=== PATIENT | female | born 1960 | race Caucasian/White ===

== ENCOUNTER 2017-03-09 10:08 | Emergency (ER) | payer MEDICARE ==
--- NOTE | 2017-03-09 12:00 | RAD ---
PA AND LATERAL OF THE CHEST: INDICATION: Cough for weeks. COMPARISON: Prior exam dated 08/04/16. FINDINGS: Lungs are clear. Cardiomediastinal silhouette is normal-appearing. No acute osseous abnormality is demonstrated. IMPRESSION: No acute cardiopulmonary abnormality. POS: [facility]
== END 2017-03-09 11:45 | disposition home or self-care (01) ==
LOC: ERS 10:08
DX: J20.9 Acute bronchitis, unspecified (principal); E11.9 Type 2 diabetes mellitus without complications; E78.2 Mixed hyperlipidemia; I10 Essential (primary) hypertension; F31.9 Bipolar disorder, unspecified; F20.9 Schizophrenia, unspecified; F41.9 Anxiety disorder, unspecified; Z79.82 Long term (current) use of aspirin; Z79.899 Other long term (current) drug therapy; Z79.4 Long term (current) use of insulin
CPT/HCPCS: 71020

== ENCOUNTER 2017-08-28 18:39 | Emergency (ER) | payer MEDICARE ==
--- NOTE | 2017-08-28 19:16 | RAD ---
CHEST ONE VIEW: History: Cough. Comparison: 03-09-17 FINDINGS: The lungs are clear. No pneumothorax or effusion. Cardiac silhouette and mediastinal contours are wit hin normal limits. IMPRESSION: No acute intrathoracic abnormality. POS: [facility]
== END 2017-08-28 19:30 | disposition home or self-care (01) ==
LOC: SCSER 18:39
DX: J20.9 Acute bronchitis, unspecified (principal); E11.9 Type 2 diabetes mellitus without complications; E78.5 Hyperlipidemia, unspecified; F31.9 Bipolar disorder, unspecified; F20.9 Schizophrenia, unspecified; F90.9 Attention-deficit hyperactivity disorder, unspecified type; F41.9 Anxiety disorder, unspecified; I10 Essential (primary) hypertension; K21.9 Gastro-esophageal reflux disease without esophagitis; Z79.4 Long term (current) use of insulin
CPT/HCPCS: 71045

== ENCOUNTER 2017-10-07 10:48 | Outpatient (CLI) | payer MEDICARE | END 2017-10-07 10:49 | disposition home or self-care (01) | LOC: BICMAMMO 10:48 | PROVIDERS: ATTEND Family Medicine | DX: Z12.31 Encounter for screening mammogram for malignant neoplasm of breast (principal); Z80.3 Family history of malignant neoplasm of breast | CPT/HCPCS: 77063; 77067 ==

== ENCOUNTER 2018-03-07 18:31 | Emergency (ER) | payer MEDICARE ==
--- NOTE | 2018-03-07 19:17 | RAD ---
PORTABLE CHEST: 03/07/18 PROVIDED CLINICAL HISTORY: Cough. FINDINGS: Comparison 08/28/17. The cardiac and mediastinal silhouette is unchanged in appearance. Lungs appear clear. No pleural flu id or pneumothorax apparent. IMPRESSION: No evidence for an acute cardiopulmonary process. POS: [facility]
== END 2018-03-07 20:10 | disposition home or self-care (01) ==
LOC: ERS 18:31
DX: J06.9 Acute upper respiratory infection, unspecified (principal); K21.9 Gastro-esophageal reflux disease without esophagitis; E11.9 Type 2 diabetes mellitus without complications; E78.5 Hyperlipidemia, unspecified; I10 Essential (primary) hypertension; Z79.899 Other long term (current) drug therapy; Z79.84 Long term (current) use of oral hypoglycemic drugs
CPT/HCPCS: 71045; 94640; J7620

== ENCOUNTER 2018-03-12 20:28 | Emergency (ER) | payer MEDICARE ==
[2018-03-12 21:22] LABS: Hemoglobin 13.5 g/dL (12.0-16.0); Mean Corpuscular HGB CONC 35.9 g/dL (32.0-36.0); Mean Platelet Volume 8.6 fL (7.4-10.4); Platelet Count 187 thou/uL (130-400); RBC Distribution Width 11.6 % (11.5-14.5); Red Blood Cell (RBC) Count 4.09 mill/uL (4.20-5.40); White Blood Cell (WBC) Count 6.1 thou/uL (4.8-10.8)
--- NOTE | 2018-03-12 21:27 | RAD ---
PORTABLE CHEST: HISTORY: Cough. COMPARISON: 03/07/2018 FINDINGS: Heart size and mediastinum are within normal limits. Lungs appear clear of any infiltrative process. IMPRESSION: No active intrathoracic disease. POS: [facility]
[2018-03-12] MEDS ORDERED: Dexamethasone 10 MG/ML VIAL ONE (21:30)
[2018-03-12 21:32] LABS: ALT (SGPT) 44 U/L (8-55); AST (SGOT) 32 U/L (5-34); Albumin 4.4 g/dL (3.5-5.0); Alkaline Phosphatase 171 U/L (40-150); Anion Gap 17 mmol/L (10-20); BUN (Urea Nitrogen) 9 mg/dL (9.8-20.1); Bilirubin, Total 0.2 mg/dL (0.2-1.2); Calc. Creatinine Clearance 0 mL/min (70-130); Calcium 9.5 mg/dL (7.8-10.44); Carbon Dioxide 26 mmol/L (22-29); Chloride 95 mmol/L (98-107); Estimated GFR-MDRD 81; Globulin 3.1 g/dL (2.4-3.5); Glucose 269 mg/dL (70-105); Potassium 3.7 mmol/L (3.5-5.1); Protein, Total 7.5 g/dL (6.0-8.3); Sodium 134 mmol/L (136-145)
[2018-03-12 21:41] LABS: Band 2 % (5-11); Lymphocytes 49 % (21-51); MDiff Complete? YES; Monocytes 5 % (0-10); Neutrophil 40 % (42-75); Reactive Lymphocytes 4 % (0-10)
--- NOTE | 2018-03-17 15:19 | EKG ---
Test Reason : Blood Pressure : / mmHG Vent. Rate : 086 BPM Atrial Rate : 086 BPM P-R Int : 126 ms QRS Dur : 086 ms QT Int : 352 ms P-R-T Axes : 060 026 074 degrees QTc Int : 421 ms Normal sinus rhythm Normal ECG Confirmed by SHON KUMAR M.D. ([id number]), multimedia editor NIRALI ROSE ([id number]) on 03/17/2018 3:18:56 PM Referred By: Confirmed By:SHON KUMAR M.D.
== END 2018-03-12 22:26 | disposition home or self-care (01) ==
LOC: ERS 20:28
DX: B34.9 Viral infection, unspecified (principal); K21.9 Gastro-esophageal reflux disease without esophagitis; E11.9 Type 2 diabetes mellitus without complications; E78.5 Hyperlipidemia, unspecified; I10 Essential (primary) hypertension; F90.9 Attention-deficit hyperactivity disorder, unspecified type; F41.9 Anxiety disorder, unspecified; F31.9 Bipolar disorder, unspecified; F20.9 Schizophrenia, unspecified; Z79.82 Long term (current) use of aspirin; Z79.4 Long term (current) use of insulin; Z79.899 Other long term (current) drug therapy
CPT/HCPCS: 36415; 71045; 80053; 85025; 87804; 93005; 94640; J1100; J7620

== ENCOUNTER 2018-04-12 20:01 | Emergency (ER) | payer MEDICARE ==
--- NOTE | 2018-04-12 20:49 | RAD ---
RIGHT FOOT THREE VIEWS: 04/12/18 COMPARISON: None. HISTORY: Right sided foot pain. FINDINGS: There is an obliquely oriented fracture at the base of the fifth metatarsal extending into the articu lation with the cuboid. There is minimal distraction with no significant displacement. There is enthe sophyte formation at the insertion of the Achilles tendon and origin of the plantar aponeurosis. IMPRESSION: Fracture at the base of the fifth metatarsal. POS: [facility]
== END 2018-04-12 20:48 | disposition home or self-care (01) ==
LOC: ERS 20:01
DX: S92.351A Displaced fracture of fifth metatarsal bone, right foot, initial encounter for closed fracture (principal); K21.9 Gastro-esophageal reflux disease without esophagitis; E78.1 Pure hyperglyceridemia; I10 Essential (primary) hypertension; F41.9 Anxiety disorder, unspecified; F31.9 Bipolar disorder, unspecified; F90.9 Attention-deficit hyperactivity disorder, unspecified type; F20.9 Schizophrenia, unspecified; Z79.4 Long term (current) use of insulin; X58.XXXA Exposure to other specified factors, initial encounter

== ENCOUNTER 2018-07-06 18:10 | Emergency (ER) | payer MEDICARE ==
[2018-07-06 18:43] LABS: #Eosinphils 0.1 thou/uL (0.0-0.7); #Lymphocytes 2.3 thou/uL (1.20-3.40); #Monocytes 0.7 thou/uL (0.11-0.59); #Neutrophils 4.1 thou/uL (1.40-6.50); %Basophils 0.6 % (0.0-1.0); %Eosinophils 0.9 % (0.0-10.0); %Lymphocytes 32.2 % (21.0-51.0); %Monocytes 9.9 % (0.0-10.0); %Neutrophils 56.4 % (42.0-75.0); Hemoglobin 12.6 g/dL (12.0-16.0); Mean Corpuscular HGB CONC 34.3 g/dL (32.0-36.0); Mean Corpuscular Volume 93.2 fL (78.0-98.0); Mean Platelet Volume 9.1 fL (7.4-10.4); Platelet Count 160 thou/uL (130-400); RBC Distribution Width 11.2 % (11.5-14.5); Red Blood Cell (RBC) Count 3.92 mill/uL (4.20-5.40); White Blood Cell (WBC) Count 7.3 thou/uL (4.8-10.8)
[2018-07-06 19:13] LABS: ALT (SGPT) 22 U/L (8-55); AST (SGOT) 15 U/L (5-34); Albumin 4.4 g/dL (3.5-5.0); Alkaline Phosphatase 129 U/L (40-150); Anion Gap 13 mmol/L (10-20); BUN (Urea Nitrogen) 9 mg/dL (9.8-20.1); Bilirubin, Total 0.6 mg/dL (0.2-1.2); CK (CPK) 87 U/L (29-168); Calc. Creatinine Clearance 0 mL/min (70-130); Calcium 9.6 mg/dL (7.8-10.44); Carbon Dioxide 31 mmol/L (22-29); Chloride 95 mmol/L (98-107); Estimated GFR-MDRD 72; Globulin 2.5 g/dL (2.4-3.5); Glucose 303 mg/dL (70-105); Lipase 16 U/L (8-78); Potassium 5.3 mmol/L (3.5-5.1); Protein, Total 6.9 g/dL (6.0-8.3); Sodium 134 mmol/L (136-145)
[2018-07-06 21:10] LABS: Anion Gap 10 mmol/L (10-20); BUN (Urea Nitrogen) 9 mg/dL (9.8-20.1); Calc. Creatinine Clearance 0 mL/min (70-130); Calcium 8.9 mg/dL (7.8-10.44); Carbon Dioxide 30 mmol/L (22-29); Chloride 98 mmol/L (98-107); Estimated GFR-MDRD 84; Glucose 234 mg/dL (70-105); Potassium 4.3 mmol/L (3.5-5.1); Sodium 134 mmol/L (136-145)
[2018-07-06 21:16] LABS: Troponin I Less than 0.010 ng/mL (< 0.028)
--- NOTE | 2018-07-06 21:26 | RAD ---
EXAM: Chest one view: HISTORY: Chest pain COMPARISON: 03/12/2018 FINDINGS: Heart size: Within normal limits. The lungs: Clear of acute process. No evidence for pneumonia, pleural effusion, acute edema, or pneumothorax, or other significant acute process. IMPRESSION: No significant acute intrathoracic disease. Stable from prior study.
== END 2018-07-06 21:40 | disposition home or self-care (01) ==
LOC: ERS 18:10
DX: R07.89 Other chest pain (principal); E86.0 Dehydration; K21.9 Gastro-esophageal reflux disease without esophagitis; E11.9 Type 2 diabetes mellitus without complications; I10 Essential (primary) hypertension; Z79.899 Other long term (current) drug therapy; Z79.84 Long term (current) use of oral hypoglycemic drugs
CPT/HCPCS: 36415; 71045; 80053; 82550; 83690; 84484; 85025; 93005; 96360; 96361

== ENCOUNTER 2018-08-05 17:21 | Emergency (ER) | payer MEDICARE ==
[~2018-08-05 17:21] MED LIST: Iopamidol 370 76% 100 ML VIAL ONE
[2018-08-05] MEDS ORDERED: Ondansetron PF 4 MG/2 ML Vial ONE (17:57)
[2018-08-05] MEDS ORDERED: Metoclopramide HCl 10 MG/2 ML VIAL ONE (17:57)
[2018-08-05 18:18] LABS: Hemoglobin 12.7 g/dL (12.0-16.0); Mean Corpuscular HGB CONC 35.3 g/dL (32.0-36.0); Mean Corpuscular Hemoglobin 31.7 pg (27.0-31.0); Mean Corpuscular Volume 89.8 fL (78.0-98.0); Mean Platelet Volume 10.5 fL (7.4-10.4); Platelet Count 125 thou/uL (130-400); RBC Distribution Width 11.3 % (11.5-14.5); Red Blood Cell (RBC) Count 3.99 mill/uL (4.20-5.40); White Blood Cell (WBC) Count 4.7 thou/uL (4.8-10.8)
[2018-08-05 18:29] LABS: Eosinophils 1 % (0-10); Lymphocytes 48 % (21-51); MDiff Complete? YES; Monocytes 6 % (0-10); Neutrophil 42 % (42-75); Platelet Morphology Comment Appears Decreased; RBC Morphology Normal; Reactive Lymphocytes 2 % (0-10)
[2018-08-05 18:30] LABS: Bilirubin Negative (Negative); Blood, Urine Negative (Negative); Clarity Clear (Clear); Glucose, Urine (Dipstick) 500 mg/dL (Negative); Leukocyte Negative (Negative); Nitrite Negative (Negative); Protein, Urine (Dipstick) Negative (Neg-Trace); Urobilinogen 0.2 mg/dL (0.2-1.0); pH, Urine 5.5 (5.0-9.0)
[2018-08-05 18:30] LABS: ALT (SGPT) 40 U/L (8-55); AST (SGOT) 25 U/L (5-34); Albumin 4.4 g/dL (3.5-5.0); Alkaline Phosphatase 124 U/L (40-150); Anion Gap 13 mmol/L (10-20); BUN (Urea Nitrogen) 8 mg/dL (9.8-20.1); Bilirubin, Total 0.3 mg/dL (0.2-1.2); Calc. Creatinine Clearance 0 mL/min (70-130); Calcium 9.6 mg/dL (7.8-10.44); Carbon Dioxide 30 mmol/L (22-29); Chloride 93 mmol/L (98-107); Estimated GFR-MDRD 74; Globulin 2.7 g/dL (2.4-3.5); Glucose 282 mg/dL (70-105); Protein, Total 7.1 g/dL (6.0-8.3); Sodium 132 mmol/L (136-145)
--- NOTE | 2018-08-05 19:12 | CT ---
CT ABDOMEN AND PELVIS WITH IV CONTRAST 08/05/2018 CLINICAL INFORMATION: Left lower quadrant abdominal pain and prior history of diverticulitis. Low back pain. COMPARISON: 05/28/2015 Technique: Multiple contiguous axial CT images are obtained through the abdomen and pelvis with IV contrast. Cor onal reformatted images are provided. FINDINGS: Lower Chest: within normal limits. Vessels: Vascular calcifications are seen in the abdominal aorta and involving the iliac arteries. Abdomen: Portal vein:Patent Gallbladder: Postcholecystectomy changes are noted. Liver: The liver is enlarged in craniocaudal dimensions measuring 24 cm. This is similar to prior exa m. Pancreas: within normal limits. Spleen: within normal limits. Adrenals: within normal limits. Kidneys: within normal limits. Bowel: There is colonic diverticulosis without CT evidence of diverticulitis. Loops of small bowel ar e normal in caliber. Appendix: The appendix is visualized and normal in caliber. Peritoneum: No ascites or free air; no fluid collection. Mesentery and Retroperitoneum: No enlarged mesenteric or retroperitoneal lymph nodes. Abdominal Wall: Minimal stranding is seen within the anterior adipose layer of the lower abdominal wa ll at the level of the umbilicus. This is nonspecific. Pelvis: Reproductive Organs: Again noted is evidence of prior hysterectomy. Pelvis within normal limits. Bladder: within normal limits. Bones: Mild degenerative changes are seen in the spine. IMPRESSION: 1. No acute findings are seen in the abdomen or pelvis. 2. Stable enlargement of the liver in craniocaudal dimensions. 3. Postoperative changes related to cholecystectomy and hysterectomy. 4. Colonic diverticulosis.
== END 2018-08-05 20:48 | disposition home or self-care (01) ==
LOC: SCSER 17:21
DX: K58.9 Irritable bowel syndrome, unspecified (principal); K21.9 Gastro-esophageal reflux disease without esophagitis; E11.9 Type 2 diabetes mellitus without complications; E78.2 Mixed hyperlipidemia; I10 Essential (primary) hypertension; F90.9 Attention-deficit hyperactivity disorder, unspecified type; F31.9 Bipolar disorder, unspecified; F41.9 Anxiety disorder, unspecified; F20.9 Schizophrenia, unspecified; Z79.4 Long term (current) use of insulin
CPT/HCPCS: 74177; 80053; 81003; 83690; 85025; 87086; 96365; 96372; 96375; J0500; J2405; J2765; Q9967

== ENCOUNTER 2018-10-01 15:01 | Emergency (ER) | payer MEDICARE ==
--- NOTE | 2018-10-01 15:36 | RAD ---
XR Knee Lt 4 View STANDARD: 10/01/2018 3:14 PM CLINICAL INDICATION: Left knee pain COMPARISON: None. FINDINGS: Bones: Small marginal osteophytes are seen involving the patella Joints: There is mild joint capsular distention. Soft Tissue: Within normal limits. IMPRESSION: Mild osteoarthrosis of the left knee. No acute fracture or subluxation. Mild joint capsular distentio n..
== END 2018-10-01 15:47 | disposition home or self-care (01) ==
LOC: ERS 15:01
DX: S83.92XA Sprain of unspecified site of left knee, initial encounter (principal); E11.9 Type 2 diabetes mellitus without complications; K21.9 Gastro-esophageal reflux disease without esophagitis; E78.5 Hyperlipidemia, unspecified; I10 Essential (primary) hypertension; F31.9 Bipolar disorder, unspecified; Z79.899 Other long term (current) drug therapy; Z79.4 Long term (current) use of insulin; W18.30XA Fall on same level, unspecified, initial encounter

== ENCOUNTER 2018-10-06 15:00 | Outpatient (CLI) | payer MEDICARE ==
--- NOTE | 2018-10-06 16:40 | MRI ---
LEFT KNEE MRI WITHOUT IV CONTRAST: 10/06/18 HISTORY: Acute left knee pain. Very irregular appearance of the patellar cartilage involving medial and lateral patellar facet regio ns, evidence for prominent chondromalacia patella as well as some minimal generalized cartilage loss of the medial compartment and less so lateral compartment. Minimal interosseous cystic changes noted involving the intercondylar eminence of the proximal tibia probably related to interosseous ganglion cyst. Irregular posterior root tear of the medial meniscus as well as slightly complicated tear with horizontal component involving the body of the medial meniscus. Slight free edge irregularity of the lateral meniscus body. Anterior and posterior cruciate ligaments and collateral ligament complexes an d quadriceps and patellar tendons appear intact. No significant acute osteochondral defect or abnorma l marrow signal. IMPRESSION: Irregular posterior root tear medial meniscus as well as a minimally complex tear of the body of the medial meniscus including a horizontal component. Irregular cartilage loss with evidence for fairly m arked chondromalacia patella. Intrasubstance degenerative signal and mild free edge irregularity of t he lateral meniscus. Interosseous cystic ganglion involving the intercondylar eminence of the proxima l tibia. POS: OFF
== END 2018-10-06 15:01 | disposition home or self-care (01) ==
LOC: BICMRI 15:00
PROVIDERS: ATTEND Orthopaedic Surgery
DX: M25.562 Pain in left knee (principal); S83.232A Complex tear of medial meniscus, current injury, left knee, initial encounter; M22.42 Chondromalacia patellae, left knee; M67.462 Ganglion, left knee

== ENCOUNTER 2018-10-09 09:18 | Outpatient (CLI) | payer MEDICARE ==
--- NOTE | 2018-10-09 10:25 | MMO ---
Bilateral MAMMO Bilat Screen [facility]. CLINICAL HISTORY: Patient is 58 years old and is seen for screening. The patient has the following family history of breast cancer: 2 paternal aunts. The patient has no personal history of cancer. The patient has a history of left Ultrasound Guided Core Biopsy in January,. VIEWS: The views performed were: bilateral craniocaudal with tomosynthesis and bilateral mediolateral oblique with tomosynthesis. FILMS COMPARED: The present examination has been compared to prior imaging studies performed at [facility] on 07/16/2014, 07/23/2015, 08/03/2016 and 10/07/2017. MAMMOGRAM FINDINGS: There are scattered fibroglandular densities. There are stable benign appearing calcifications seen in both breasts. There are benign scattered densities in both breasts. There are no suspicious masses, suspicious calcifications, or new areas of architectural distortion. IMPRESSION: THERE IS NO MAMMOGRAPHIC EVIDENCE OF MALIGNANCY. A ROUTINE FOLLOW-UP MAMMOGRAM IN 1 YEAR IS RECOMMENDED. THE RESULTS OF THIS EXAM WERE SENT TO THE PATIENT. ACR BI-RADS Category 2 - Benign finding MAMMOGRAPHY NOTE: 1. A negative mammogram report should not delay a biopsy if a dominant of clinically suspicious mass is present. 2. Approximately 10% to 15% of breast cancers are not detected by mammography. 3. Adenosis and dense breasts may obscure an underlying neoplasm. Reported by: BANDAR MCCLAIN MD Electonically Signed: [id number]
== END 2018-10-09 09:19 | disposition home or self-care (01) ==
LOC: BICMAMMO 09:18
PROVIDERS: ATTEND Family Medicine
DX: Z12.31 Encounter for screening mammogram for malignant neoplasm of breast (principal); Z80.3 Family history of malignant neoplasm of breast
CPT/HCPCS: 77063; 77067

== ENCOUNTER 2018-10-19 08:31 | Day surgery (SDC) | payer MEDICARE ==
[2018-10-18 11:08] VITALS: BMI 35.4
[2018-10-19] MEDS ORDERED: ceFAZolin Sodium (SDC) 2 GM/100 ML BAG ONE (09:23)
[2018-10-19 09:50] LABS: #Basophils 0.1 thou/uL (0.0-0.2); #Eosinphils 0.1 thou/uL (0.0-0.7); #Monocytes 0.4 thou/uL (0.11-0.59); #Neutrophils 1.6 thou/uL (1.40-6.50); %Basophils 1.5 % (0.0-1.0); %Eosinophils 2.1 % (0.0-10.0); %Lymphocytes 46.7 % (21.0-51.0); %Monocytes 10.4 % (0.0-10.0); %Neutrophils 39.3 % (42.0-75.0); Hemoglobin 13.1 g/dL (12.0-16.0); Mean Corpuscular HGB CONC 34.9 g/dL (32.0-36.0); Mean Corpuscular Hemoglobin 31.8 pg (27.0-31.0); Mean Platelet Volume 8.9 fL (7.4-10.4); Platelet Count 161 thou/uL (130-400); RBC Distribution Width 11.4 % (11.5-14.5); Red Blood Cell (RBC) Count 4.14 mill/uL (4.20-5.40); White Blood Cell (WBC) Count 4.2 thou/uL (4.8-10.8)
[2018-10-19 09:58] LABS: Prothrombin Time 12.8 SEC (12.0-14.7)
[2018-10-19 10:02] LABS: Anion Gap 12 mmol/L (10-20); BUN (Urea Nitrogen) 7 mg/dL (9.8-20.1); Calc. Creatinine Clearance 140 mL/min (70-130); Calcium 9.7 mg/dL (7.8-10.44); Carbon Dioxide 31 mmol/L (22-29); Chloride 98 mmol/L (98-107); Estimated GFR-MDRD 78; Glucose 254 mg/dL (70-105); Potassium 4.6 mmol/L (3.5-5.1); Sodium 136 mmol/L (136-145)
[2018-10-19] MEDS ORDERED: Lidocaine 1% (PF) 30 ML VIAL ONE (10:22)
[2018-10-19] MEDS ORDERED: Bupivacaine/Epinephrine 0.25% 30 ML VIAL ONE (10:22)
[2018-10-19] MEDS ORDERED: Fentanyl 100 MCG/2 ML VIAL ONE ×2 (10:34→12:50)
[2018-10-19] MEDS ORDERED: Promethazine HCl 25 MG/ML VIAL ONE (11:48)
[2018-10-19] MEDS ORDERED: HYDROcodone/Acetaminophen 5/325 mg Tablet ONE (13:58)
--- NOTE | 2018-10-19 14:51 | OP ---
DATE OF PROCEDURE: 10/19/2018 PREOPERATIVE DIAGNOSIS: Left knee medial meniscus tear. POSTOPERATIVE DIAGNOSES: 1. Left knee anterior horn frayed edge. 2. Posterior horn tear of medial meniscus near root. 3. Grade 2 to 3 changes of trochlea and grade 1 to 2 changes of patella. 4. Grade 1 to 2 changes, medial compartment. PROCEDURE PERFORMED: Medial meniscectomy. BUS DRIVER SUPERVISOR: None. ANESTHESIA: The patient received 30 mL of Marcaine preprocedure and 30 mL of lidocaine after the procedure. TOURNIQUET TIME: 26 minutes. ANTIBIOTICS: Ancef. COMPLICATIONS: None. HISTORY OF PRESENT ILLNESS: Ms. Anthony is a 58-year-old female presenting with knee pain. The knee pain has been present for about 3 weeks. The patient's pain is severe. The patient's MRI showed severe meniscal tear of chondromalacia patella , cartilage thinning of medial and lateral joint spaces. I discussed with the patient the risks and benefits of debridement of the medial meniscus tear to include pain, scar, bleeding, infection, risk of arthritis, need for further surgery, damage to vital structures, loss of life or limb, and blood clot. She understood these risks and benefits and elected to proceed. DESCRIPTION OF PROCEDURE: Time-out was performed designating the patient's left lower extremity as the operative site based on site, consents, and marking. After time-out, the patient's right lower extremity was prepped and draped in sterile fashion. Tourniquet was brought up and left for a total of 26 minutes. After we injected with Marcaine in the joint, we then placed the anterolateral portal, visualized fat pad, placed our anterior medial portal with a spinal needle. We debrided the fat pad and evaluated the ACL and PCL, which were intact. Patellofemoral joint with grade 2 to 3 changes of the trochlea and 1 to 2 on the patella. We probed gutters and saw no loose bodies laterally. There were no meniscal tears. No significant degenerative arthritic changes there. There was some grade 1 to 2 changes on the medial compartment. The meniscus actually looked good. The majority of its course was little frayed on the anterior edge near its insertion on the horn, which was slightly debrided. There was a the tear in the posterior horn root, but the meniscus itself was otherwise stable. I debrided back to stable remnant and cleaned up the edge of the posterior horn medial meniscus tear near its root. I then washed and completed my diagnostic scope and debriding some of the patellofemoral articular surface fibrillations, but not on the bone. We washed and closed with 3-0 nylon. The patient will be weightbearing as tolerated. The patient will be discharged home with hydrocodone 5/325. She will follow up with me in clinic in about 2 weeks. Job ID: [id number] [facility]
== END 2018-10-19 14:30 | disposition home or self-care (01) ==
LOC: SDC 08:31
PROVIDERS: ATTEND Orthopaedic Surgery
PROC: 0SBD4ZZ Excision of Left Knee Joint, Percutaneous Endoscopic Approach (ICD-10-PCS; principal; 2018-10-19)
DX: S83.232A Complex tear of medial meniscus, current injury, left knee, initial encounter (principal); M22.42 Chondromalacia patellae, left knee; G47.33 Obstructive sleep apnea (adult) (pediatric); I10 Essential (primary) hypertension; E78.5 Hyperlipidemia, unspecified; E10.9 Type 1 diabetes mellitus without complications; F41.9 Anxiety disorder, unspecified; E78.00 Pure hypercholesterolemia, unspecified; K21.9 Gastro-esophageal reflux disease without esophagitis; K58.9 Irritable bowel syndrome, unspecified; Z79.82 Long term (current) use of aspirin; Z79.84 Long term (current) use of oral hypoglycemic drugs; Z79.899 Other long term (current) drug therapy; Z88.8 Allergy status to other drugs, medicaments and biological substances; Z91.040 Latex allergy status; Z91.048 Other nonmedicinal substance allergy status; Y93.01 Activity, walking, marching and hiking
CPT/HCPCS: 80048; 85025; 85610; 93005; 93010; J0690; J2001; J2550; J3010

== ENCOUNTER 2018-11-03 11:32 | Emergency (ER) | payer MEDICARE ==
[2018-11-03] MEDS ORDERED: Lidocaine Viscous Sol 2% 15 ml UD Cup ONE (12:51)
[2018-11-03] MEDS ORDERED: Mag-Al 1200 mg/1200 mg/30 ML UDCUP ONE (12:51)
--- NOTE | 2018-11-03 13:17 | RAD ---
Chest 2 views HISTORY: Chest pain. Cough. COMPARISON: 03/09/2017. FINDINGS: The cardiac silhouette and pulmonary vasculature are unremarkable. Mediastinum is midline. No confluent airspace consolidation, pneumothorax, or pleural fluid. IMPRESSION: No active cardiopulmonary abnormalities are demonstrated.
[2018-11-03 13:30] LABS: #Eosinphils 0.1 thou/uL (0.0-0.7); #Lymphocytes 2.4 thou/uL (1.20-3.40); #Monocytes 0.6 thou/uL (0.11-0.59); #Neutrophils 2.6 thou/uL (1.40-6.50); %Basophils 0.7 % (0.0-1.0); %Eosinophils 1.9 % (0.0-10.0); %Lymphocytes 40.9 % (21.0-51.0); %Neutrophils 45.6 % (42.0-75.0); Hemoglobin 13.9 g/dL (12.0-16.0); Mean Corpuscular HGB CONC 35.2 g/dL (32.0-36.0); Mean Corpuscular Hemoglobin 32.6 pg (27.0-31.0); Mean Corpuscular Volume 92.6 fL (78.0-98.0); Mean Platelet Volume 8.1 fL (7.4-10.4); Platelet Count 187 thou/uL (130-400); RBC Distribution Width 11.4 % (11.5-14.5); Red Blood Cell (RBC) Count 4.26 mill/uL (4.20-5.40); White Blood Cell (WBC) Count 5.8 thou/uL (4.8-10.8)
[2018-11-03 14:03] LABS: ALT (SGPT) 34 U/L (8-55); AST (SGOT) 25 U/L (5-34); Albumin 4.6 g/dL (3.5-5.0); Alkaline Phosphatase 116 U/L (40-150); Anion Gap 13 mmol/L (10-20); BUN (Urea Nitrogen) 9 mg/dL (9.8-20.1); Bilirubin, Total 0.4 mg/dL (0.2-1.2); Calc. Creatinine Clearance 0 mL/min (70-130); Calcium 9.7 mg/dL (7.8-10.44); Carbon Dioxide 29 mmol/L (22-29); Chloride 96 mmol/L (98-107); Estimated GFR-MDRD 81; Globulin 2.7 g/dL (2.4-3.5); Glucose 121 mg/dL (70-105); Potassium 3.7 mmol/L (3.5-5.1); Protein, Total 7.3 g/dL (6.0-8.3); Sodium 134 mmol/L (136-145)
== END 2018-11-03 14:25 | disposition home or self-care (01) ==
LOC: ERS 11:32
DX: B34.9 Viral infection, unspecified (principal); K21.9 Gastro-esophageal reflux disease without esophagitis; E11.9 Type 2 diabetes mellitus without complications; I10 Essential (primary) hypertension; E78.2 Mixed hyperlipidemia; E78.5 Hyperlipidemia, unspecified; F90.9 Attention-deficit hyperactivity disorder, unspecified type; F31.9 Bipolar disorder, unspecified; F20.9 Schizophrenia, unspecified; F41.9 Anxiety disorder, unspecified; Z79.4 Long term (current) use of insulin; Z79.82 Long term (current) use of aspirin; Z79.899 Other long term (current) drug therapy
CPT/HCPCS: 36415; 71046; 80053; 84484; 85025; 87081; 87430; 93005

== ENCOUNTER 2018-11-18 11:33 | Observation (INO) | payer MEDICARE ==
--- NOTE | 2018-11-18 12:08 | RAD ---
CHEST 2 VIEWS: Date: 11/18/18 COMPARISON: 11/11/18. HISTORY: Productive cough and congestion. FINDINGS: Lungs are clear. Heart and mediastinal contours unremarkable. Multilevel degenerative change noted wi thin the thoracic spine. IMPRESSION: No acute findings. POS: OFF
[2018-11-18 12:45] LABS: #Basophils 0.1 thou/uL (0.0-0.2); #Eosinphils 0.1 thou/uL (0.0-0.7); #Lymphocytes 2.4 thou/uL (1.20-3.40); #Monocytes 0.5 thou/uL (0.11-0.59); #Neutrophils 2.4 thou/uL (1.40-6.50); %Basophils 1.1 % (0.0-1.0); %Eosinophils 1.2 % (0.0-10.0); %Lymphocytes 44.6 % (21.0-51.0); %Monocytes 8.4 % (0.0-10.0); %Neutrophils 44.7 % (42.0-75.0); Hemoglobin 13.6 g/dL (12.0-16.0); Mean Corpuscular HGB CONC 34.3 g/dL (32.0-36.0); Mean Corpuscular Hemoglobin 32.4 pg (27.0-31.0); Mean Corpuscular Volume 94.5 fL (78.0-98.0); Mean Platelet Volume 9.5 fL (7.4-10.4); Platelet Count 159 thou/uL (130-400); RBC Distribution Width 11.5 % (11.5-14.5); Red Blood Cell (RBC) Count 4.19 mill/uL (4.20-5.40); White Blood Cell (WBC) Count 5.4 thou/uL (4.8-10.8)
[2018-11-18] MEDS ORDERED: ISOVUE-370 76%-LOCM 1 ML ONE (12:57)
[2018-11-18 13:06] LABS: ALT (SGPT) 38 U/L (8-55); AST (SGOT) 26 U/L (5-34); Albumin 4.3 g/dL (3.5-5.0); Alkaline Phosphatase 135 U/L (40-150); Anion Gap 12 mmol/L (10-20); BUN (Urea Nitrogen) 9 mg/dL (9.8-20.1); Bilirubin, Total 0.4 mg/dL (0.2-1.2); Calc. Creatinine Clearance 0 mL/min (70-130); Calcium 9.6 mg/dL (7.8-10.44); Carbon Dioxide 28 mmol/L (22-29); Chloride 96 mmol/L (98-107); Estimated GFR-MDRD 67; Globulin 2.5 g/dL (2.4-3.5); Glucose 376 mg/dL (70-105); Potassium 3.9 mmol/L (3.5-5.1); Protein, Total 6.8 g/dL (6.0-8.3); Sodium 132 mmol/L (136-145)
[2018-11-18 14:30] LABS: CK (CPK) 52 U/L (29-168); Lipase 53 U/L (8-78)
--- NOTE | 2018-11-18 14:44 | CT ---
EXAM: Brain CTWithout contrast: HISTORY: Headache COMPARISON: None FINDINGS: Minimal mucus in the dependent portion of the right maxillary sinus. No focal mass or midline shift. No intra or extra-axial hemorrhage. Sinuses and mastoids are clear of acute process. IMPRESSION: No mass or bleed or other significant acute intracranial process.
--- NOTE | 2018-11-18 14:50 | CT ---
EXAM: CT angiogram of the chest including 3-D rendering: HISTORY: Cough, prior surgical history COMPARISON: None FINDINGS: There is adequate opacification of the pulmonary arteries. No evidence for aortic aneurysm or dissection. No convincing CT evidence for acute pulmonary embolism. No significant acute pulmonary parenchymal process. No evidence for mediastinal mass or adenopathy. No evidence for pleural or pericardial effusion. The visualized upper abdomen is unremarkable. IMPRESSION: No convincing CT evidence for acute pulmonary embolism.
[2018-11-18] MEDS ORDERED: Aspirin Chewable 81 MG TAB ONE (16:43)
[2018-11-18 16:47] LABS: Troponin I Less than 0.010 ng/mL (< 0.028)
[2018-11-18] MEDS ORDERED: Ondansetron PF 4 MG/2 ML Vial IVP PRN ×2 (17:55→19:15)
[2018-11-18] MEDS ORDERED: Acetaminophen 325 MG TAB PO PRN (17:55)
[2018-11-18] MEDS ORDERED: Ondansetron ODT 4 MG TAB SL PRN (17:55)
[2018-11-18 18:07] VITALS: BMI 36.2
[2018-11-18] MEDS ORDERED: busPIRone HCl 5 MG TAB PO PRN (18:59)
[2018-11-18] MEDS ORDERED: Guaifenesin DM 100-10/5 ML UDCUP PO PRN (19:15)
[2018-11-18] MEDS ORDERED: Dextrose 5% in Water 1,000 ML IV PRN (19:18)
[2018-11-18] MEDS ORDERED: Dextrose 50% Abboject 50 ML SYRINGE SLOW IVP PRN (19:18)
[2018-11-18] MEDS ORDERED: HumaLOG 300 UNITS/3 ML VIAL SC PRN (19:18)
[2018-11-18] MEDS ORDERED: Albuterol Sulfate 2.5 mg/3 ml Neb NEB PRN (19:23)
[2018-11-18 19:28] LABS: Troponin I Less than 0.010 ng/mL (< 0.028)
[2018-11-18] MEDS ORDERED: HYDROcodone/Acetaminophen 7.5/325 mg Tablet PO PRN (19:53)
[2018-11-18] MEDS: Insulin Glargine 40 UNITS in Pre-Filled Syringe 1 EACH SC SCH (20:52)
[2018-11-18] MEDS: HumaLOG 300 UNITS/3 ML VIAL SC PRN (20:54)
[2018-11-18] MEDS: methylPREDNISolone Sod Succ 40 MG VIAL IVP SCH (20:55)
[2018-11-18] MEDS: Amoxicillin/Potassium Clav 875 MG TAB PO SCH (20:59)
[2018-11-18] MEDS: Atorvastatin Calcium 20 MG TAB PO SCH (21:00)
[2018-11-18] MEDS: carBAMazepine 200 MG TAB PO SCH (21:00)
[2018-11-18] MEDS ORDERED: Non-Formulary Item 1 EACH (Levemir Flexpen [Levemir Flexpen] 40 UNIT) SC SCH (21:00)
[2018-11-18] MEDS: traZODone HCl 50 MG TAB PO SCH (21:01)
[2018-11-19] MEDS: Albuterol Sulfate 2.5 mg/3 ml Neb NEB SCH ×4 (00:12→19:52)
[2018-11-19 04:42] LABS: Cardiac Risk 3.7 (Less than 4.5); Magnesium 1.9 mg/dL (1.6-2.6)
[2018-11-19] MEDS: HumaLOG 300 UNITS/3 ML VIAL SC PRN (05:52)
[2018-11-19] MEDS ORDERED: Regadenoson 0.4 MG/5 ML SYRINGE ONE (07:20)
[2018-11-19] MEDS ORDERED: carBAMazepine 200 MG TAB PO SCH (09:00)
[2018-11-19] MEDS: Insulin Glargine 40 UNITS in Pre-Filled Syringe 1 EACH SC SCH ×2 (11:59→20:33)
[2018-11-19] MEDS: methylPREDNISolone Sod Succ 40 MG VIAL IVP SCH ×2 (12:00→20:38)
[2018-11-19] MEDS: Fish Oil 1,000 MG CAP PO SCH (12:00)
[2018-11-19] MEDS: Aspirin Chewable 81 MG TAB PO SCH (12:01)
[2018-11-19] MEDS: Calcium Carbonate + Vit D 1 TAB PO SCH (12:02)
[2018-11-19] MEDS: Hydrochlorothiazide 25 MG TAB PO SCH (12:02)
[2018-11-19] MEDS: carBAMazepine 200 MG TAB PO SCH ×2 (12:02→20:37)
[2018-11-19] MEDS: Multivit, Therapeutic 1 TAB PO SCH (12:02)
[2018-11-19] MEDS: Lisinopril 20 MG TAB PO SCH (12:03)
[2018-11-19] MEDS: Amoxicillin/Potassium Clav 875 MG TAB PO SCH ×2 (12:03→20:37)
--- NOTE | 2018-11-19 12:28 | HP ---
REASON FOR ADMISSION: Chest pain. HISTORY OF PRESENT ILLNESS: This is a 58-year-old female patient who presented to the emergency room complaining of chest pain that occurred yesterday. While she was driving with her , she developed a chest pain localized in the left parasternal area radiating to her arm in the form of tingling and numbness. This discomfort lasted for approximately 10 hours, subsided spontaneously. After returning home and lying in bed she felt something is strangling her and since she has a strong family history of coronary artery disease, she decided to come to the emergency room. In the ER, she was found to be in bigemin. The patient is currently on telemetry. When I went to see her, she was sitting in bed. She appeared to be comfortable. She was eating dinner with her . The patient has been struggling with respiratory infection for the past couple of weeks. It all started on November 06 when she visited the ER and was diagnosed with bronchitis. Then went to her primary care physician. She was started on azithromycin, prednisone, and promethazine. On the , she went back to her primary care physician complaining of persistence of her symptoms that consisted of cough productive of yellow and green sputum, also shortness of breath. She was given an additional dose of Rocephin. Then she went to the ER on the . She was diagnosed with pneumonia. She did receive courses of Levaquin, azithromycin and was on prednisone. Her last dose of prednisone was 5 days ago. Her last dose of antibiotic was 2 days ago. Today, the patient stills feels bad. She complains of stiffness in her neck and feels nauseous. She is coughing brownish phlegm. She feels that her sinuses are full. Whenever she blows her nose, she produces yellow discharge. She complains of her ears hurting. I reviewed her medical records and approximately 3 years ago she was admitted with chest pain, did undergo nuclear stress test that was negative. She said that she had more than 2 stress test in her lifetime. Also, she had a cardiac cath done approximately 14 years ago. All these testes were found to be negative. The patient also notes that last year she had multiple episodes of bronchitis. That is why she was prescribed a nebulizer machine which she has been using recently. She claims that her bronchitis is difficult to get rid of. PAST MEDICAL HISTORY: 1. Diabetes type 2. 2. High blood pressure. 3. High cholesterol. 4. GERD. 5. Diverticulitis. 6. Anxiety. 7. Bipolar disorder. 8. Depression. 9. Schizophrenia. 10. ADHD. PAST SURGICAL HISTORY: 1. x4. 2. Hernia repair. 3. Cholecystectomy. 4. Hysterectomy. 5. Left oophorectomy. 6. Status post recent left knee arthroscopy. ALLERGIES: RIFAMPIN, WHICH GIVES HER DIFFICULTY WITH BREATHING. SOCIAL HISTORY: She does not smoke. She drinks alcohol seldom. FAMILY HISTORY: Positive for heart disease, mainly on her mother's side, her uncles, her aunts. REVIEW OF SYSTEMS: All systems reviewed except for the above-mentioned chest pain found to be negative. PHYSICAL EXAMINATION: GENERAL: She is awake, alert, oriented. Does not appear in distress. VITAL SIGNS: Her blood pressure is 142/64, her heart rate is 96, temperature is 98.1, saturating 97% on room air. HEENT: Head is atraumatic, normocephalic. Pupils equal and reactive. Extraocular movements are intact. Nonicteric sclerae, with injected conjunctivae. Oral mucosa normal. Nasal mucosa normal. NECK: Supple. No adenopathy, no murmur. Thyroid is not palpable. Trachea is midline. No supraclavicular lymphadenopathy. CARDIOVASCULAR: S1, S2, regular. No murmur, no gallops. No frictional rubs, nondisplaced PMI. LUNGS: Clear to auscultation except whenever she coughs there is an end-expiratory wheezing bilaterally. ABDOMEN: Bowel sounds are positive, nontender abdomen, no hepatosplenomegaly. EXTREMITIES: No lower extremity edema. No cyanosis. NEUROLOGIC: Cranial nerves 2 through 12 within normal limits. Normal motor function. Normal sensory function and reflexes. LABORATORY DATA: Blood work shows hemoglobin of 13.6, platelets of 159, WBC 5.4. Sodium 132, potassium 3.9, BUN 9, creatinine 0.87. INR 1. EKG per my read shows bigeminy. Compared to a previous printed reports, this seems to be something new from a report of an EKG done in 2017. CT of the chest shows no evidence of acute PE. CT of head shows no mass or bleed. Minimal mucus in the dependent portion of the right maxillary sinus. ASSESSMENT AND PLAN: This is a 58-year-old female patient who is presenting with multiple symptoms mainly persistent cough and shortness of breath most likely secondary to a lingering viral infection. She did receive multiple doses of antibiotics and prednisone. Whenever she tapers off her prednisone, it seems that her symptoms get worse. Also, patient did have a chest pain while she was driving yesterday. It lasted 10 hours, but her cardiac enzymes are negative. She does have bigeminy 1. Cardiac. The patient will be admitted to telemetry. We will cycle her cardiac enzymes and we will schedule her for an echocardiogram and a Lexiscan in the morning. Continue aspirin, continue statins. We will check a magnesium level as well. 2. Pulmonary: The patient might be struggling with a viral bronchitis. She does have some mucus in her sinus. I would start her on some Augmentin and continue with IV Solu-Medrol and she will be on neb treatments as well. Because of her diabetes, we will hold her metformin since she did refuse contrast. She will be on insulin sliding scale and a long-acting insulin. 3. For her gastroesophageal reflux disease, she will be on Protonix. 4. For deep venous thrombolysis prophylaxis, she will be on SCDS. 5. For her history of bipolar and ADHD, she will be on her Tegretol. Job ID: [id number]
--- NOTE | 2018-11-19 13:02 | NM ---
Exam: Nuclear medicine cardiac stress only study with ejection fraction and wall motion HISTORY: Chest pain Lexiscan study is performed Patient was injected with 28.5 mCi technetium 99m sestamibi intravenously for stress only imaging. FINDINGS: Short axis, vertical long axis, and horizontal long axis imaging demonstrates no evidence for infarct or ischemia. LHR 0.38 EDV 99 mL Ejection fraction 75%. Normal wall motion. IMPRESSION: Unremarkable stress only cardiac SPECT.
--- NOTE | 2018-11-19 17:49 | PDOC.HOSPP ---
- Subjective Encounter Date: 11/19/18 Subjective: She had an episode yesterday during which she became anxious when she rolled over her monitor showed tachycardia. Today she still does not feel well, appears anxious. - Objective Vital Signs & Weight: Vital Signs (12 hours) Temp Pulse Resp BP Pulse Ox 11/19/18 15:33 98.1 F 102 H 18 138/67 97 11/19/18 11:37 98.1 F 97 18 141/69 H 95 11/19/18 07:53 98.0 F 96 18 134/71 94 L 11/19/18 07:02 90 14 Weight Weight 245 lb 4.8 oz I&O: 11/18/18 11/19/18 11/20/18 06:59 06:59 06:59 Intake Total 1371 Output Total 2500 Balance -1129 Result Diagrams: 11/18/18 12:35 11/18/18 12:35 Additional Labs: Accuchecks 11/19/18 11/19/18 11/19/18 16:43 11:17 05:51 POC Glucose 328 H 317 H 301 H 11/18/18 20:02 POC Glucose 306 H Hospitalist ROS - Medication Medications: Active Medications Generic Name Dose Route Start Last Admin Trade Name Freq PRN Reason Stop Dose Admin Hydrocodone Bitart/Acetaminophen 1 tab 11/18/18 19:53 11/19/18 08:10 Talala 7.5/325 PO 1 tab Q4H PRN Administration Mild Pain (1-3) Albuterol Sulfate 2.5 mg 11/19/18 01:00 11/19/18 16:27 Ventolin NEB Not Given [id number] ALMA Amoxicillin/Clavulanate Potassium 875 mg 11/18/18 21:00 11/19/18 12:03 Augmentin PO 875 mg Q12HR ALMA Administration Aspirin 81 mg 11/19/18 09:00 11/19/18 12:01 Aspirin Chewable PO 81 mg DAILY ALMA Administration Atorvastatin Calcium 20 mg 11/18/18 21:00 11/18/18 21:00 Lipitor PO 20 mg QPM AMLA Administration Buspirone HCl 7.5 mg 11/18/18 18:59 11/19/18 12:06 Buspar PO 7.5 mg BIDPRN PRN Administration Anxiety Calcium/Vitamin D 2 tab 11/19/18 09:00 11/19/18 12:02 Caltrate 600 + Vit D PO 2 tab DAILY ALMA Administration Carbamazepine 400 mg 11/18/18 21:00 11/19/18 12:02 Tegretol PO 400 mg BID ALMA Administration Fish Oil 2,000 mg 11/19/18 09:00 11/19/18 12:00 Fish Oil PO 2,000 mg DAILY ALMA Administration Hydrochlorothiazide 25 mg 11/19/18 09:00 11/19/18 12:02 Hydrochlorothiazide PO 25 mg QAM ALMA Administration Insulin Glargine 40 units/ 0.4 mls @ 0 mls/hr 11/18/18 21:00 11/19/18 11:59 Miscellaneous Medication SC 0.4 mls BID ALMA Administration Insulin Human Lispro 0 units 11/18/18 19:18 11/19/18 17:35 Humalog SC 8 unit .MODERATE SLIDING SC PRN Administration Moderate Correctional Scale Insulin Human Lispro 0 units 11/18/18 20:05 11/19/18 05:52 Humalog SC 4 unit .BEDTIME SLIDING SC PRN Administration Bedtime Correctional Scale Lisinopril 20 mg 11/19/18 09:00 11/19/18 12:03 Zestril PO 20 mg QAM ALMA Administration Methylprednisolone Sodium Succinate 40 mg 11/18/18 21:00 11/19/18 12:00 Solu-Medrol IVP 40 mg BID ALMA Administration Multivitamins 1 tab 11/19/18 09:00 11/19/18 12:02 Theragran PO 1 tab DAILY ALMA Administration Ondansetron HCl 4 mg 11/18/18 19:15 11/19/18 08:11 Zofran IVP 4 mg Q6H PRN Administration Nausea/Vomiting Pantoprazole Sodium 40 mg 11/19/18 09:00 11/19/18 12:01 Protonix PO 40 mg QAM ALMA Administration Sodium Chloride 10 ml 11/19/18 09:00 11/19/18 12:04 Flush - Normal Saline IVF 10 ml Q12HR ALMA Administration Trazodone HCl 200 mg 11/18/18 21:00 11/18/18 21:01 Desyrel PO 200 mg HS ALMA Administration Venlafaxine HCl 150 mg 11/19/18 09:00 11/19/18 12:03 Effexor PO 150 mg QAM ALMA Administration - Exam General Appearance: NAD, awake alert Eye: PERRL, anicteric sclera ENT: normocephalic atraumatic, no oropharyngeal lesions, moist mucosa Neck: supple, symmetric, no JVD, no thyromegaly, no lymphadenopathy, no carotid bruit Heart: RRR, no murmur, no gallops, no rubs, normal peripheral pulses Respiratory: CTAB, no wheezes, no rales, no ronchi, normal chest expansion, no tachypnea, normal percussion Gastrointestinal: soft, non-tender, non-distended, normal bowel sounds, no palpable masses, no hepatomegaly, no splenomegaly, no bruit Extremities: no cyanosis, no clubbing, no edema Musculoskeletal: normal tone, normal strength, no muscle wasting Psychiatric: A&O x 3, oriented to person (anxious) Hosp A/P (1) Anxiety and depression Code(s): F41.8 - OTHER SPECIFIED ANXIETY DISORDERS Status: Chronic (2) Hypertension Code(s): I10 - ESSENTIAL (PRIMARY) HYPERTENSION Status: Chronic (3) Bronchitis Code(s): J40 - BRONCHITIS, NOT SPECIFIED ACUTE OR CHRONIC Status: Acute (4) Flushing Code(s): R23.2 - FLUSHING Status: Chronic (5) Chest pain Code(s): R07.9 - CHEST PAIN, UNSPECIFIED Status: Resolved - Plan Cardiac---workup so far is negative, awaiting echo-cardiogram result. She remains tachycardic, she has a baseline high HR, nebs could be a contributing factor, I want to trial her on a beta miracle, will start with low dose Toprol, will see if she will feel better with slightly lower HR, she is in agreement. I will check a serum metanephrine maybe there is an underlying pheo, the result is a send out, her PCP needs to follow up, I informed the patient about that. Pulmonary---lungs sound better today, she reports a productive cough---will continue steroids and ATB. psych--continue meds DVT px with SCD.
[2018-11-19] MEDS ORDERED: HumaLOG 300 UNITS/3 ML VIAL SC SCH (20:30)
[2018-11-19] MEDS: Atorvastatin Calcium 20 MG TAB PO SCH (20:36)
[2018-11-19] MEDS ORDERED: Bisacodyl 10 MG SUPP PR PRN (20:49)
[2018-11-19] MEDS: Senokot S 8.6-50 MG TAB PO SCH (21:07)
[2018-11-19] MEDS: traZODone HCl 50 MG TAB PO SCH (22:38)
[2018-11-20] MEDS: Albuterol Sulfate 2.5 mg/3 ml Neb NEB SCH ×2 (01:44→06:40)
[2018-11-20] MEDS ORDERED: Acetaminophen 325 MG TAB PO PRN (03:52)
[2018-11-20 08:00] VITALS: BP 117/57; TEMP 97.7
[2018-11-20] MEDS ORDERED: HumaLOG 300 UNITS/3 ML VIAL SC SCH (08:00)
[2018-11-20] MEDS: Senokot S 8.6-50 MG TAB PO SCH (08:12)
[2018-11-20] MEDS: Fish Oil 1,000 MG CAP PO SCH (08:12)
[2018-11-20] MEDS: Amoxicillin/Potassium Clav 875 MG TAB PO SCH (08:13)
[2018-11-20] MEDS: Multivit, Therapeutic 1 TAB PO SCH (08:13)
[2018-11-20] MEDS: Calcium Carbonate + Vit D 1 TAB PO SCH (08:13)
[2018-11-20] MEDS: Hydrochlorothiazide 25 MG TAB PO SCH (08:13)
[2018-11-20] MEDS: Lisinopril 20 MG TAB PO SCH (08:13)
[2018-11-20] MEDS: Aspirin Chewable 81 MG TAB PO SCH (08:13)
[2018-11-20] MEDS: carBAMazepine 200 MG TAB PO SCH (08:14)
[2018-11-20] MEDS: methylPREDNISolone Sod Succ 40 MG VIAL IVP SCH (08:15)
[2018-11-20] MEDS: Insulin Glargine 40 UNITS in Pre-Filled Syringe 1 EACH SC SCH (08:16)
--- NOTE | 2018-11-21 03:36 | DIS ---
DATE OF ADMISSION: 11/18/2018 DATE OF DISCHARGE: 11/20/2018 DISCHARGE DIAGNOSES: 1. Tachycardia and bigeminy, multiple premature ventricular contractions. 2. Shortness of breath secondary to bronchitis. HISTORY OF PRESENT ILLNESS: This is a 58-year-old female patient who presented with multiple complaints of mainly difficulty with breathing and cough that has been persistent for the past couple of weeks, did receive multiple courses of antibiotics and prednisone without much relief. Also she complained of an episode of chest pain. The patient was admitted to our hospital under telemetry. She underwent a nuclear stress test and an echocardiogram, they both were within normal limits and negative. Although the echocardiogram was not technically perfect, did not show any abnormality. The patient continued to be tachycardic and since she did have a CT of the chest that was negative for PE and her workup was essentially negative so far, I started her on Toprol XL 25 mg per day, this helped her with her heart rates and with her symptoms. PHYSICAL EXAMINATION: GENERAL: Today, she feels very well. VITAL SIGNS: Stable. LUNGS: Clear. HEART: S1 and S2 are regular. No murmurs, no gallops, no frictional rubs. ABDOMEN: Bowel sounds are positive. Nontender abdomen. EXTREMITIES: No lower extremity edema. No cyanosis. DISCHARGE INSTRUCTIONS: The patient will be discharged today on a Medrol pack and on a course of Augmentin for 5 days, also a new prescription of Toprol. She is to continue her other medications including the psychiatric meds and her diabetes meds as well as her antihypertensive agents. Of note, the patient serum metanephrine was drawn and since it is a send-out test, it will take 3 to 5 days to result. The reason why we cadence it is to rule out pheochromocytoma since the patient has been complaining of tachycardia, flushing, and sweating. This test needs to be followed by her primary care physician, I have instructed the patient to notify the primary care physician about this test and we will send this note to her primary care physician, the patient verbalized understanding. More than half an hour was spent to discharge this patient. Job ID: [id number]
[2018-11-23 22:07] LABS: Metanephrine,Plasma 10 pg/mL (0-62); Normetanephrine,Pl 44 pg/mL (0-145)
== END 2018-11-20 09:55 | disposition home or self-care (01) ==
LOC: ERS 11:33 → 2SW 15:53
PROVIDERS: ADMIT Internal Medicine; ATTEND Internal Medicine
DX: R00.0 Tachycardia, unspecified (principal); I49.3 Ventricular premature depolarization; J40 Bronchitis, not specified as acute or chronic; I10 Essential (primary) hypertension; E78.00 Pure hypercholesterolemia, unspecified; F90.9 Attention-deficit hyperactivity disorder, unspecified type; F20.9 Schizophrenia, unspecified; F41.9 Anxiety disorder, unspecified; F32.9 Major depressive disorder, single episode, unspecified; K21.9 Gastro-esophageal reflux disease without esophagitis; Z88.1 Allergy status to other antibiotic agents; Z91.040 Latex allergy status; Z91.048 Other nonmedicinal substance allergy status; Z79.84 Long term (current) use of oral hypoglycemic drugs; Z79.82 Long term (current) use of aspirin; Z79.899 Other long term (current) drug therapy
CPT/HCPCS: 70450; 71046; 71275; 78452; 80053; 80061; 82550; 82962 ×3; 83690; 83735; 83835; 83880; 84443; 84484 ×2; 85025; 93005; 93017; 93306; 94640 ×3; 94760 ×3; 96374; 96375; 96376 ×2; 99285; A9500; G0378 ×4; 36415; 36416; J1815; J2405; J2785; J2920; J7611; Q9966

== ENCOUNTER 2018-12-13 13:13 | Outpatient (CLI) | payer MEDICARE ==
--- NOTE | 2018-12-13 13:37 | RAD ---
2 VIEWS CHEST: Date: 12/13/18 COMPARISON: 11/18/18. HISTORY: Cough. FINDINGS: Two views of the chest show normal sized cardiomediastinal silhouette. There is no evidence of consol idation, mass, or pleural effusion. The bones are unremarkable. IMPRESSION: No evidence of acute cardiopulmonary disease. POS: TPC
== END 2018-12-13 13:14 | disposition home or self-care (01) ==
LOC: BICRAD 13:13
PROVIDERS: ATTEND Family Medicine
DX: R05 Cough (principal)
CPT/HCPCS: 71046

== ENCOUNTER 2019-05-04 14:20 | Emergency (ER) | payer MEDICARE ==
--- NOTE | 2019-05-04 15:08 | RAD ---
2 view chest: [05/04/2019] Comparison:12/13/2018 HISTORY: Productive cough FINDINGS: Heart and mediastinal contours are grossly unremarkable. No pneumothorax or pleural fluid. No focal consolidation or alveolar edema. Clips in the right upper quadrant suggest prior cholecystectomy. Multilevel mid thoracic spine degenerative change. IMPRESSION: No acute findings.
[2019-05-04 15:09] LABS: #Eosinphils 0.1 thou/uL (0.0-0.7); #Lymphocytes 2.2 thou/uL (1.20-3.40); #Monocytes 0.5 thou/uL (0.11-0.59); #Neutrophils 2.7 thou/uL (1.40-6.50); %Basophils 0.6 % (0.0-1.0); %Eosinophils 1.4 % (0.0-10.0); %Lymphocytes 40.5 % (21.0-51.0); %Monocytes 8.3 % (0.0-10.0); %Neutrophils 49.2 % (42.0-75.0); Mean Corpuscular HGB CONC 36.4 g/dL (32.0-36.0); Mean Corpuscular Hemoglobin 33.3 pg (27.0-31.0); Mean Corpuscular Volume 91.5 fL (78.0-98.0); Mean Platelet Volume 9.4 fL (7.4-10.4); Platelet Count 170 thou/uL (130-400); RBC Distribution Width 11.1 % (11.5-14.5); Red Blood Cell (RBC) Count 4.21 mill/uL (4.20-5.40); White Blood Cell (WBC) Count 5.4 thou/uL (4.8-10.8)
[2019-05-04 15:32] LABS: ALT (SGPT) 36 U/L (8-55); AST (SGOT) 28 U/L (5-34); Albumin 4.5 g/dL (3.5-5.0); Alkaline Phosphatase 148 U/L (40-110); Anion Gap 15 mmol/L (10-20); BUN (Urea Nitrogen) 12 mg/dL (9.8-20.1); Bilirubin, Total 0.3 mg/dL (0.2-1.2); Calc. Creatinine Clearance 0 mL/min (70-130); Calcium 9.8 mg/dL (7.8-10.44); Carbon Dioxide 31 mmol/L (22-29); Chloride 94 mmol/L (98-107); Estimated GFR-MDRD 70; Glucose 317 mg/dL (70-105); Potassium 4.6 mmol/L (3.5-5.1); Protein, Total 7.5 g/dL (6.0-8.3); Sodium 135 mmol/L (136-145)
== END 2019-05-04 16:45 | disposition home or self-care (01) ==
LOC: ERS 14:20
DX: J18.9 Pneumonia, unspecified organism (principal); E11.65 Type 2 diabetes mellitus with hyperglycemia; K21.9 Gastro-esophageal reflux disease without esophagitis; E78.2 Mixed hyperlipidemia; I10 Essential (primary) hypertension; F41.9 Anxiety disorder, unspecified; F31.9 Bipolar disorder, unspecified; F20.9 Schizophrenia, unspecified; F90.9 Attention-deficit hyperactivity disorder, unspecified type; Z79.4 Long term (current) use of insulin; Z79.899 Other long term (current) drug therapy
CPT/HCPCS: 36415; 71046; 80053; 85025; 87804; 94640; J7620

== ENCOUNTER 2019-05-19 15:03 | Inpatient (IN) | payer MEDICARE, SELFPAY ==
[~2019-05-19 15:03] MED LIST changes: -Iopamidol 370 76% 100 ML VIAL ONE; +Iopamidol-370 76% 500 ML 1 ML ONE
[2019-05-19 16:16] LABS: Bacteria/HPF None Seen HPF (None Seen); Bilirubin Negative (Negative); Blood, Urine Negative (Negative); Clarity Clear (Clear); Glucose, Urine (Dipstick) Normal (Negative); Leukocyte 75 Leu/uL (Negative); Nitrite Negative (Negative); Protein, Urine (Dipstick) Negative (Neg-Trace); RBC/HPF 0-3 HPF (0-3); Squamous Epithelial 0-3 HPF (0-3); Urobilinogen Normal mg/dL (Less than 2)
[2019-05-19] MEDS ORDERED: Fentanyl 100 MCG/2 ML VIAL ONE (17:02)
[2019-05-19] MEDS ORDERED: Ondansetron PF 4 MG/2 ML Vial ONE ×3 (17:02→18:39)
--- NOTE | 2019-05-19 17:03 | RAD ---
EXAM: Portable chest PROVIDED CLINICAL HISTORY: Chest pain COMPARISON: 05/04/2019 FINDINGS: Cardiac and mediastinal silhouette is within normal limits. No focal consolidation, pleural fluid or pneumothorax evident. IMPRESSION: No evidence for an acute cardiopulmonary process.
[2019-05-19 17:05] LABS: #Lymphocytes 2.3 thou/uL (1.20-3.40); #Monocytes 0.8 thou/uL (0.11-0.59); #Neutrophils 6.3 thou/uL (1.40-6.50); %Basophils 0.3 % (0.0-1.0); %Eosinophils 0.4 % (0.0-10.0); %Lymphocytes 24.4 % (21.0-51.0); %Monocytes 8.3 % (0.0-10.0); %Neutrophils 66.6 % (42.0-75.0); Hemoglobin 12.8 g/dL (12.0-16.0); Mean Corpuscular HGB CONC 35.1 g/dL (32.0-36.0); Mean Corpuscular Hemoglobin 32.7 pg (27.0-31.0); Mean Corpuscular Volume 93.2 fL (78.0-98.0); Mean Platelet Volume 9.5 fL (7.4-10.4); Platelet Count 156 thou/uL (130-400); RBC Distribution Width 11.2 % (11.5-14.5); White Blood Cell (WBC) Count 9.4 thou/uL (4.8-10.8)
[2019-05-19 17:20] LABS: ALT (SGPT) 26 U/L (8-55); AST (SGOT) 14 U/L (5-34); Albumin 4.3 g/dL (3.5-5.0); Alkaline Phosphatase 121 U/L (40-110); Anion Gap 14 mmol/L (10-20); BUN (Urea Nitrogen) 8 mg/dL (9.8-20.1); Bilirubin, Total 0.5 mg/dL (0.2-1.2); Calc. Creatinine Clearance 0 mL/min (70-130); Calcium 9.5 mg/dL (7.8-10.44); Carbon Dioxide 28 mmol/L (22-29); Chloride 93 mmol/L (98-107); Estimated GFR-MDRD 75; Globulin 2.8 g/dL (2.4-3.5); Glucose 223 mg/dL (70-105); Lipase 10 U/L (8-78); Potassium 3.8 mmol/L (3.5-5.1); Protein, Total 7.1 g/dL (6.0-8.3); Sodium 131 mmol/L (136-145)
[2019-05-19] MEDS ORDERED: Morphine 4 MG/ML VIAL ONE (18:39)
--- NOTE | 2019-05-19 19:15 | CT ---
EXAM: CT Abdomen Pelvis W Con PROVIDED CLINICAL HISTORY: Abdominal pain COMPARISON: 08/05/2018 FINDINGS: The visualized lung bases are free of significant opacity. There is diffuse fatty infiltration of the liver. The solid abdominal organs demonstrate an otherwise unremarkable CT appearance. Changes of prior cholecystectomy are seen. There is mural thickening and the juxta colonic fat stranding involving the sigmoid colon compatible with acute diverticulitis. Multiple diverticula are seen in this region. There is no evidence for extraluminal gas or a focal fluid collection. This process immediately overlies the dome of the urina ry bladder without definite urinary bladder wall thickening or evidence for bladder gas. There is no evidence for bowel obstruction. No evidence for appendicitis. Conspicuous colonic fecal r etention, suggesting constipation. Scattered vascular calcifications. The osseous structures demonstrate no concerning lytic or blastic lesions. Lower lumbar spine degener ative changes are seen. IMPRESSION: Uncomplicated sigmoid diverticulitis.
[2019-05-19 20:36] LABS: Troponin I Less than 0.010 ng/mL (< 0.028)
[2019-05-19] MEDS ORDERED: Nitroglycerin 2% Ointment 1 INCH/1 GM Packet ONE (21:46)
[2019-05-19] MEDS ORDERED: metroNIDAZOLE 250 MG TAB ONE (21:46)
[2019-05-19] MEDS ORDERED: Acetaminophen 500 MG TAB ONE (21:46)
[2019-05-19] MEDS ORDERED: Aspirin 325 MG TAB ONE (21:46)
[2019-05-19] MEDS ORDERED: Ciprofloxacin 500 MG TAB ONE (21:46)
[2019-05-19] MEDS ORDERED: Dextrose 50% Abboject 50 ML SYRINGE SLOW IVP PRN (22:04)
[2019-05-19] MEDS ORDERED: Dextrose 5% in Water 1,000 ML IV PRN (22:04)
[2019-05-19 23:50] LABS: Troponin I Less than 0.010 ng/mL (< 0.028)
[2019-05-20 00:02] VITALS: BMI 38.0
[2019-05-20] MEDS: Famotidine/PF 20 mg/2ml Vial SLOW IVP SCH ×2 (00:48→01:25)
[2019-05-20] MEDS: Dextrose 5 % And 0.9 % NaCl 1,000 ML IV SCH ×2 (01:25→13:10)
--- NOTE | 2019-05-20 04:58 | HP ---
CHIEF COMPLAINT: Lower abdominal pain. HISTORY OF PRESENT ILLNESS: Ms. Anthony is a 58-year-old female with past medical history of diabetes mellitus, type 2, diverticulitis, GERD, hyperlipidemia, hypertriglyceridemia, hypertension, cardiac arrhythmias, presented to the emergency room with lower abdominal pain radiating to the back that started last night. The patient had difficulty urinating, and she has been having constipation for the last 2 days. Associated with nausea but no vomiting. Also, the patient had some chest tightness. Workup in the emergency room including imaging studies, CT abdomen and pelvis, the patient was found to have uncomplicated sigmoid diverticulitis. Sodium is 131. BUN is 8, creatinine is 0.7, glucose 223. WBC count is 9.4. Initial troponin is negative. CT abdomen and pelvis as mentioned above in the history of present illness. PHYSICAL EXAMINATION: The patient started on IV antibiotics in the emergency room. The patient is being admitted to hospital for further management. PAST MEDICAL HISTORY: As mentioned above in the history of present illness. PAST SURGICAL HISTORY: 1. Hernia repair. 2. Oophorectomy. 3. Cholecystectomy. 4. section x4. 5. Hysterectomy, partial. 6. Left knee surgery. PAST PSYCHIATRIC HISTORY: 1. Bipolar disorder. 2. ADHD. 3. Schizophrenia. SOCIAL HISTORY: No smoking history. Denies drug use. Lives at home. Drinks alcohol socially. FAMILY HISTORY: Reviewed and noncontributory. HOME MEDICATIONS: Please see home medication reconciliation form for updated medications. ALLERGIES: ALLERGIC TO ADHESIVE, LATEX, RUBBER, AND RIFAMPIN. REVIEW OF SYSTEMS: Review of 14 systems negative except what is mentioned in the history of present illness. PHYSICAL EXAMINATION: GENERAL: The patient is awake, alert, in moderate distress secondary to pain. VITAL SIGNS: Blood pressure 140/84, pulse is 90, respiratory rate 17, temperature is 98.1, and pulse oximetry 96% on room air. HEAD AND NECK: Normocephalic and atraumatic. Neck is supple. No JVD. CHEST: Fair bilateral air entry. HEART: S1 and S2. Regular. ABDOMEN: Soft with lower abdominal tenderness. Bowel sounds present. NEUROLOGIC: Awake, alert, and oriented x3. PSYCH: Normal mood. EXTREMITIES: No clubbing or cyanosis. GENITOURINARY: No flank tenderness. No suprapubic tenderness. MUSCULOSKELETAL: No joint deformity or tenderness. LABORATORY DATA: Labs, as mentioned above in history of present illness. DIAGNOSTIC STUDIES: CT of abdomen and pelvis as mentioned above in the history of present illness. ASSESSMENT: 1. Acute diverticulitis. 2. Chest pain? atypical. 3. Diabetes mellitus. 4. Hyperglycemia. 5. Hyperlipidemia. 6. History of cardiac arrhythmias. PLAN: 1. Admit. 2. We will keep n.p.o. 3. IV fluids. 4. IV antibiotics. 5. Pain management. 6. The patient was given aspirin in the ED. 7. Serial troponins. 8. Reconcile home medications. 9. DVT prophylaxis as appropriate. 10. Expected length of stay, 2 midnights or more. Job ID: [id number]
[2019-05-20 05:20] LABS: Anion Gap 9 mmol/L (10-20); BUN (Urea Nitrogen) 6 mg/dL (9.8-20.1); Calc. Creatinine Clearance 159 mL/min (70-130); Calcium 8.8 mg/dL (7.8-10.44); Carbon Dioxide 31 mmol/L (22-29); Chloride 97 mmol/L (98-107); Estimated GFR-MDRD 82; Glucose 255 mg/dL (70-105); Potassium 4.1 mmol/L (3.5-5.1); Sodium 133 mmol/L (136-145)
[2019-05-20] MEDS: metroNIDAZOLE 500 MG in Premix Bag 1 BAG IVPB SCH ×3 (05:23→21:11)
[2019-05-20 06:03] LABS: Hemoglobin 11.5 g/dL (12.0-16.0); Mean Corpuscular HGB CONC 35.3 g/dL (32.0-36.0); Mean Corpuscular Hemoglobin 33.4 pg (27.0-31.0); Mean Corpuscular Volume 94.4 fL (78.0-98.0); RBC Distribution Width 11.1 % (11.5-14.5); Red Blood Cell (RBC) Count 3.46 mill/uL (4.20-5.40); White Blood Cell (WBC) Count 5.7 thou/uL (4.8-10.8)
[2019-05-20 06:04] LABS: #Eosinphils 0.1 thou/uL (0.0-0.7); #Monocytes 0.5 thou/uL (0.11-0.59); #Neutrophils 3.1 thou/uL (1.40-6.50); %Basophils 0.3 % (0.0-1.0); %Eosinophils 1.2 % (0.0-10.0); %Lymphocytes 35.4 % (21.0-51.0); %Monocytes 8.7 % (0.0-10.0); %Neutrophils 54.3 % (42.0-75.0); Band 2 % (5-11); Lymphocytes 43 % (21-51); MDiff Complete? YES; Mean Platelet Volume 9.1 fL (7.4-10.4); Monocytes 10 % (0-10); Neutrophil 45 % (42-75); Platelet Count 117 thou/uL (130-400); Platelet Morphology Comment Appears Decreased; RBC Morphology Normal
[2019-05-20] MEDS ORDERED: Ondansetron PF 4 MG/2 ML Vial IVP PRN (10:08)
[2019-05-20] MEDS: Ondansetron ODT 4 MG TAB PO PRN ×3 (11:19→21:10)
[2019-05-20] MEDS: traMADol HCl 50 MG TAB PO PRN ×2 (11:19→16:19)
[2019-05-20] MEDS ORDERED: Insulin Regular 300 UNITS/3 ML VIAL SC PRN (17:15)
[2019-05-20] MEDS: Insulin Regular 300 UNITS/3 ML VIAL SC PRN (17:26)
[2019-05-20] MEDS: Sodium Chloride 0.9% 1,000 ML IV SCH (19:23)
[2019-05-20] MEDS: Acetaminophen 325 MG TAB PO PRN (19:26)
[2019-05-20] MEDS: carBAMazepine 200 MG TAB PO SCH (19:27)
[2019-05-20] MEDS: Atorvastatin Calcium 20 MG TAB PO SCH (19:28)
[2019-05-20] MEDS: Polyethylene Glycol 3350 17 GM Packet PO SCH (19:28)
[2019-05-20] MEDS: busPIRone HCl 5 MG TAB PO PRN (19:34)
--- NOTE | 2019-05-20 20:11 | PDOC.HOSPP ---
- Subjective Encounter Date: 05/20/19 Encounter Time: 18:00 Subjective: Patient seen and examined for acute diverticulitis. Abd pain slightly better. Mild nausea. No BM x 3 days. No fever. No other complaints. No overnight events - Objective Vital Signs & Weight: Vital Signs (12 hours) Temp Pulse Resp BP Pulse Ox 05/20/19 19:05 97.9 F 74 15 118/57 L 97 05/20/19 15:35 98.4 F 76 15 118/57 L 96 05/20/19 11:07 98.6 F 88 16 142/61 H 96 Weight Weight 257 lb 6.4 oz I&O: 05/19/19 05/20/19 05/21/19 06:59 06:59 06:59 Intake Total 500 2560 Output Total 700 1750 Balance -200 810 Result Diagrams: 05/20/19 04:25 05/20/19 04:25 Additional Labs: Accuchecks 05/20/19 05/20/19 16:28 13:00 POC Glucose 256 H 275 H Radiology Reviewed by me: Yes (CT abd - acute diverticulitis) EKG Reviewed by me: Yes (Tele SR) Hospitalist ROS - Review of Systems Respiratory: denies: cough, dry, shortness of breath, hemoptysis, SOB with excertion, pleuritic pain, sputum, wheezing, other Cardiovascular: denies: chest pain, palpitations, orthopnea, paroxysmal noc. dyspnea, edema, light headedness, other Genitourinary: denies: dysuria, frequency, incontinence, hematuria, retention, other - Medication Medications: Active Medications Generic Name Dose Route Start Last Admin Trade Name Freq PRN Reason Stop Dose Admin Acetaminophen 650 mg 05/20/19 17:18 05/20/19 19:26 Tylenol PO 650 mg Q4H PRN Administration Headache/Fever or Mild Pain Atorvastatin Calcium 20 mg 05/20/19 21:00 05/20/19 19:28 Lipitor PO 20 mg QPM ALMA Administration Buspirone HCl 7.5 mg 05/20/19 17:10 05/20/19 19:34 Buspar PO 7.5 mg BID PRN Administration Anxiety Carbamazepine 400 mg 05/20/19 21:00 05/20/19 19:27 Tegretol PO 400 mg HS ALMA Administration Ciprofloxacin/Dextrose 400 mg/ 200 mls @ 200 mls/hr 05/20/19 09:00 05/20/19 19:22 Device IVPB 200 mls Q12HR ALMA Administration Metronidazole 500 mg/ Device 100 mls @ 100 mls/hr 05/20/19 06:00 05/20/19 13: 05 IVPB 100 mls Q8HR ALMA Administration Sodium Chloride 1,000 mls @ 100 mls/hr 05/20/19 17:15 05/20/19 19:23 Normal Saline 0.9% IV 1,000 mls .Q10H ALMA Administration Insulin Human Regular 0 units 05/19/19 22:04 05/20/19 17:26 Humulin R SC 4 unit .MILD SLIDING SCALE PRN Administration Mild Correctional Scale Metoprolol Succinate 25 mg 05/20/19 21:00 05/20/19 19:33 Toprol Xl PO 25 mg HS ALMA Administration Ondansetron HCl 4 mg 05/20/19 10:08 05/20/19 16:19 Zofran Odt PO 4 mg Q6H PRN Administration Nausea/Vomiting Pantoprazole Sodium 40 mg 05/20/19 21:00 05/20/19 19:28 Protonix PO 40 mg HS ALMA Administration Polyethylene Glycol 17 gm 05/20/19 21:00 05/20/19 19:28 Miralax PO 17 gm BID ALMA Administration Saccharomyces Boulardii 250 mg 05/20/19 21:00 05/20/19 19:28 Florastor PO 250 mg HS ALMA Administration Tramadol HCl 50 mg 05/20/19 10:08 05/20/19 16:19 Ultram PO 50 mg Q4H PRN Administration Moderate Pain (4-6) - Exam General Appearance: NAD Neck: supple, no JVD Heart: no gallops, no rubs Respiratory: no wheezes, no rales, no ronchi Gastrointestinal: soft, non-distended, normal bowel sounds, tender to palpation (in lower quadrants) Extremities: no edema Neurological: no new deficit Hosp A/P - Plan DVT proph w/SCDs Acute sigmoid diverticulitis Atypical CP - ACS ruled out Obesity BMI 38 DM2 HTN HLD PLAN: Cont IV Cipro/Flagyl Pain control Clear liqd diet GI consult Change to inpt - Pt will require 2-3 days for stablization AM labs Resume home meds
[2019-05-20] MEDS ORDERED: Non-Formulary Item 1 EACH (Levemir Flexpen [Levemir Flexpen] 15 UNIT) SC SCH (21:00)
[2019-05-20] MEDS ORDERED: Saccharomyces boulardii 250 MG CAP PO SCH (21:00)
[2019-05-20] MEDS: traZODone HCl 50 MG TAB PO SCH (21:10)
[2019-05-20] MEDS: Insulin Glargine 15 UNITS in Pre-Filled Syringe SC SCH (21:15)
[2019-05-21] MEDS: metroNIDAZOLE 500 MG in Premix Bag 1 BAG IVPB SCH ×3 (04:33→22:48)
[2019-05-21] MEDS: Sodium Chloride 0.9% 1,000 ML IV SCH ×3 (04:40→21:31)
[2019-05-21 05:22] LABS: ALT (SGPT) 27 U/L (8-55); AST (SGOT) 19 U/L (5-34); Albumin 3.8 g/dL (3.5-5.0); Alkaline Phosphatase 90 U/L (40-110); Anion Gap 10 mmol/L (10-20); BUN (Urea Nitrogen) 6 mg/dL (9.8-20.1); Bilirubin, Total 0.4 mg/dL (0.2-1.2); Calc. Creatinine Clearance 152 mL/min (70-130); Calcium 8.7 mg/dL (7.8-10.44); Carbon Dioxide 29 mmol/L (22-29); Chloride 102 mmol/L (98-107); Estimated GFR-MDRD 79; Globulin 2.4 g/dL (2.4-3.5); Glucose 253 mg/dL (70-105); Potassium 4.2 mmol/L (3.5-5.1); Protein, Total 6.2 g/dL (6.0-8.3); Sodium 137 mmol/L (136-145)
[2019-05-21] MEDS: Insulin Regular 300 UNITS/3 ML VIAL SC PRN ×2 (06:21→13:22)
[2019-05-21 06:32] LABS: Band 3 % (5-11); Eosinophils 1 % (0-10); Hemoglobin 11.8 g/dL (12.0-16.0); Lymphocytes 57 % (21-51); MDiff Complete? YES; Mean Corpuscular HGB CONC 35.9 g/dL (32.0-36.0); Mean Corpuscular Hemoglobin 33.9 pg (27.0-31.0); Mean Corpuscular Volume 94.4 fL (78.0-98.0); Mean Platelet Volume 9.5 fL (7.4-10.4); Monocytes 6 % (0-10); Neutrophil 33 % (42-75); Platelet Count 129 thou/uL (130-400); RBC Distribution Width 11.2 % (11.5-14.5); Red Blood Cell (RBC) Count 3.48 mill/uL (4.20-5.40); White Blood Cell (WBC) Count 3.5 thou/uL (4.8-10.8)
[2019-05-21] MEDS: Multivit, Therapeutic 1 TAB PO SCH (08:41)
[2019-05-21] MEDS: Aspirin Chewable 81 MG TAB PO SCH (08:41)
[2019-05-21] MEDS: carBAMazepine 200 MG TAB PO SCH ×2 (08:41→21:39)
[2019-05-21] MEDS: traMADol HCl 50 MG TAB PO PRN (08:41)
[2019-05-21] MEDS: Acetaminophen 325 MG TAB PO PRN (08:41)
[2019-05-21] MEDS: Polyethylene Glycol 3350 17 GM Packet PO SCH ×4 (08:43→21:57)
[2019-05-21] MEDS: Insulin Glargine 15 UNITS in Pre-Filled Syringe SC SCH (08:51)
[2019-05-21] MEDS ORDERED: DHA PO SCH (09:00)
[2019-05-21] MEDS ORDERED: EPA PO SCH (09:00)
[2019-05-21] MEDS ORDERED: CALCIUM CARB CITRATE PO SCH (09:00)
[2019-05-21] MEDS ORDERED: Insulin Glargine 25 UNITS in Pre-Filled Syringe 1 EACH SC SCH (09:00)
[2019-05-21] MEDS ORDERED: OMEGA PO SCH (09:00)
[2019-05-21] MEDS ORDERED: FISH OIL PO SCH (09:00)
[2019-05-21] MEDS ORDERED: VIT D3 PO SCH (09:00)
[2019-05-21] MEDS ORDERED: Insulin Glargine 10 UNITS in Pre-Filled Syringe 1 EACH SC SCH (09:15)
[2019-05-21] MEDS: busPIRone HCl 5 MG TAB PO PRN (11:59)
[2019-05-21] MEDS ORDERED: GoLYTELY 4,000 ml Bottle PO SCH (14:45)
[2019-05-21] MEDS ORDERED: Insulin Glargine 20 UNITS in Pre-Filled Syringe 1 EACH SC SCH (21:00)
[2019-05-21] MEDS: Atorvastatin Calcium 20 MG TAB PO SCH (21:39)
[2019-05-21] MEDS: Docusate 100 MG CAP PO SCH (21:39)
--- NOTE | 2019-05-21 22:25 | PDOC.HOSPP ---
- Subjective Encounter Date: 05/21/19 Encounter Time: 09:00 Subjective: Patient seen and examined for Acute Diverticulitis. Abd pain improving. No BM. No N/V. No fever or chills. No other complaints. No overnight events - Objective Vital Signs & Weight: Vital Signs (12 hours) Temp Pulse Resp BP Pulse Ox 05/21/19 15:36 97.9 F 73 20 144/67 H 99 05/21/19 11:54 97.5 F L 74 16 135/67 96 Weight Weight 257 lb 6.4 oz I&O: 05/20/19 05/21/19 05/22/19 06:59 06:59 06:59 Intake Total 500 4180 Output Total 700 3350 Balance -200 830 Result Diagrams: 05/21/19 04:30 05/21/19 04:30 Additional Labs: Accuchecks 05/21/19 05/21/19 05/21/19 17:44 12:01 01:59 POC Glucose 233 H 324 H 218 H Hospitalist ROS - Review of Systems Respiratory: denies: cough, dry, shortness of breath, hemoptysis, SOB with excertion, pleuritic pain, sputum, wheezing, other Cardiovascular: denies: chest pain, palpitations, orthopnea, paroxysmal noc. dyspnea, edema, light headedness, other - Medication Medications: Active Medications Generic Name Dose Route Start Last Admin Trade Name Freq PRN Reason Stop Dose Admin Acetaminophen 650 mg 05/20/19 17:18 05/21/19 08:41 Tylenol PO 650 mg Q4H PRN Administration Headache/Fever or Mild Pain Aspirin 81 mg 05/21/19 09:00 05/21/19 08:41 Aspirin Chewable PO 81 mg DAILY ALMA Administration Atorvastatin Calcium 20 mg 05/20/19 21:00 05/21/19 21:39 Lipitor PO 20 mg QPM ALMA Administration Buspirone HCl 7.5 mg 05/20/19 17:10 05/21/19 11:59 Buspar PO 7.5 mg BID PRN Administration Anxiety Carbamazepine 200 mg 05/21/19 09:00 05/21/19 08:41 Tegretol PO 200 mg QAM ALMA Administration Carbamazepine 400 mg 05/20/19 21:00 05/21/19 21:39 Tegretol PO 400 mg HS ALMA Administration Docusate Sodium 100 mg 05/21/19 21:00 05/21/19 21:39 Colace PO 100 mg BID ALMA Administration Ciprofloxacin/Dextrose 400 mg/ 200 mls @ 200 mls/hr 05/20/19 09:00 05/21/19 21:33 Device IVPB 200 mls Q12HR ALMA Administration Metronidazole 500 mg/ Device 100 mls @ 100 mls/hr 05/20/19 06:00 05/21/19 15: 25 IVPB 100 mls Q8HR ALMA Administration Sodium Chloride 1,000 mls @ 100 mls/hr 05/20/19 17:15 05/21/19 21:31 Normal Saline 0.9% IV 1,000 mls .Q10H ALMA Administration Insulin Glargine 20 units/ 0.2 mls @ 0 mls/hr 05/21/19 21:00 05/21/19 21:41 Miscellaneous Medication SC 0.2 mls HS ALMA Administration Insulin Human Regular 0 units 05/19/19 22:04 05/21/19 13:22 Humulin R SC 5 unit .MILD SLIDING SCALE PRN Administration Mild Correctional Scale Metoprolol Succinate 25 mg 05/20/19 21:00 05/21/19 21:40 Toprol Xl PO 25 mg HS ALMA Administration Multivitamins 1 tab 05/21/19 09:00 05/21/19 08:41 Theragran PO 1 tab DAILY ALMA Administration Ondansetron HCl 4 mg 05/20/19 10:08 05/20/19 21:10 Zofran Odt PO 4 mg Q6H PRN Administration Nausea/Vomiting Pantoprazole Sodium 40 mg 05/20/19 21:00 05/21/19 21:40 Protonix PO 40 mg HS ALMA Administration Polyethylene Glycol 17 gm 05/20/19 21:00 05/21/19 21:57 Miralax PO Not Given BID ALMA Polyethylene Glycol/Electrolytes 4,000 ml 05/21/19 14:45 05/21/19 15:25 Golytely PO 05/21/19 23:59 4,000 ml NOW ALMA Administration Sodium Chloride 10 ml 05/20/19 21:00 05/21/19 21:58 Flush - Normal Saline IVF Not Given Q12HR ALMA Tramadol HCl 50 mg 05/20/19 10:08 05/21/19 08:41 Ultram PO 50 mg Q4H PRN Administration Moderate Pain (4-6) Trazodone HCl 200 mg 05/20/19 21:00 05/20/19 21:10 Desyrel PO 200 mg HS ALMA Administration Venlafaxine HCl 150 mg 05/20/19 21:00 05/21/19 21:36 Effexor PO 150 mg HS ALMA Administration - Exam General Appearance: NAD Neck: supple, no JVD Heart: RRR, no gallops Respiratory: no wheezes, no ronchi Gastrointestinal: non-distended, normal bowel sounds, no guarding, no rigidity, tender to palpation (in LLQ) Extremities: no edema Hosp A/P - Plan DVT proph w/SCDs Acute sigmoid diverticulitis Atypical CP - ACS ruled out Obesity BMI 38 DM2 HTN HLD Constipation PLAN: Cont IV Cipro/Flagyl Start Golytely - I d/w Dr Lindquist Cont Clear liqd diet AM labs Cont other meds as above
--- NOTE | 2019-05-21 23:38 | CON ---
DATE OF CONSULTATION: 05/21/2019 REASON FOR CONSULTATION: 1. Abdominal pain, CAT scan showing evidence of diverticulitis. 2. Constipation. HISTORY OF PRESENT ILLNESS: Ms. Michelle Anthony is a 58-year-old female, known to me from before. The patient had not seen me since 2014. The patient has previous history of diverticulitis and was seen by Dr. Tom Liu, I believe in 2014. Because of recurrent episodes of diverticular disease, she was advised to undergo surgery. She underwent a colonoscopy before surgery. She had seen me in 2014, had a colonoscopy. The colonoscopy showed there was minimal sigmoid diverticulosis and also a colon polyp. The polyp was removed. At that time, colonoscopy did not reveal any diverticulitis. The patient did not go back to see Dr. Liu subsequently after colonoscopy. Apparently, she did not have surgery. She has done well over the last 5 years except for occasional episodes of constipation, diarrhea, abdominal bloating, excessive gas. The patient hospitalized over the weekend with abdominal pain, unable to urinate and passing dark urine. She also has some abdominal bloating, abdominal swelling and history of low-grade fever. She usually gets hematochezia off and on. The patient came to the ER and was sent for abdominal CAT scan. The abdominal CAT scan shows evidence of acute sigmoid diverticulitis. There is no free air or any fluid collection seen. She had IV antibiotics. The patient gives history of constipation and has had no stool over the last 7 days. She was given at least 2 or 3 doses of MiraLAX last night and this morning and she is unable to give any stool. Subsequently, she was started on GoLYTELY and she had 1 stool today. The patient has had chronic GI symptoms and symptoms are most suggestive of IBS. The patient has abdominal cramping pain, abdominal bloating, gas. She also had previous constipation followed by diarrhea. She also gives history of passing some oily stool off and on. She does admit to eating plenty of fiber, but she has remained constipated. No other relevant history. MEDICAL ILLNESSES: 1. Obesity. 2. Type 2 diabetes mellitus. 3. Diverticulosis. 4. Chronic acid reflux. 5. Hyperlipidemia. 6. Hypertension. 7. Cardiac arrhythmia. 8. Colon polyp in 2014. PAST SURGICAL HISTORY: 1. Hernia repair. 2. Oophorectomy. 3. Cholecystectomy. 4. section x4. 5. Hysterectomy. 6. Left knee surgery. 7. Colonoscopy and polypectomy in 2015. PSYCHIATRIC HISTORY: 1. History of bipolar disorder. 2. ADHD. 3. Schizophrenia. SOCIAL HISTORY: The patient is . She does not smoke. Does not drink. Does not use drugs. History of social drinking. ALLERGIES: ALLERGY TO LATEX, RUBBER AND RIFAMPIN. MEDICATION LIST: Reviewed. FAMILY HISTORY: No family history of cancer or malignancy, stroke or heart disease. REVIEW OF SYSTEMS: A 10-point system reviewed. CONSTITUTIONAL: History of weight loss. No history of any change in exercise tolerance. HEENT: No chronic headache, no dizziness. ENT: No diplopia. No impaired vision. No hearing loss. NOSE: No nose bleed. THROAT: No sore throat. NECK: No stiffness or limitation of movement. There are no masses or lumps. LUNGS: No chronic coughing. No hemoptysis. No dyspnea. CARDIOVASCULAR: No chest pain, no palpitation, but history of irregular heart rate recently and was seen by Dr. Rand few months ago. No orthopnea, no PND, no palpitation. GI: Abdominal pain, abdominal bloating, diarrhea, constipation. Occasional bleeding. : History of dark urine recently, but no hematuria or any dysuria. NEUROPSYCHIATRIC: History of bipolar disorder, ADHD, schizophrenia. NEUROLOGIC: No muscle weakness. No motor weakness. No chronic headache. No syncope. PHYSICAL EXAMINATION: GENERAL: She is obese, appears very comfortable, in no acute distress. She is awake, alert, oriented to time, place, and person. VITAL SIGNS: Afebrile, pulse is 73, blood pressure is 144/67. HEENT: Conjunctivae are clear. NECK: Supple. No adenitis or thyromegaly noted. CARDIOVASCULAR: First and second heart sounds heard. LUNGS: Clear to auscultation. ABDOMEN: Soft. Abdomen is minimally tender over the lower abdomen. There is no rebound or guarding. No organomegaly. No masses. Bowel sounds normal. EXTREMITIES: Reveal no edema. LABORATORY DATA: CBC; WBC on admission 9400, hemoglobin 12.8, hematocrit 36.4, platelet count 155,000, polymorphs 66, lymphocytes 24, monocytes 8. A CBC today WBC of 3500, hemoglobin dropping to 11.8, hematocrit 32.9. Chem-7; sodium 137, potassium 4.2, chloride 102, bicarb 29, BUN is 6, creatinine 0.76, glucose 253, calcium 8.7, AST 19, ALT 27, alkaline phosphatase 90, albumin 3.8. IMAGING: Abdominal CAT scan showed evidence of sigmoid colon diverticulitis. IMPRESSION: A 58-year-old female with abdominal pain and findings of diverticulitis on CAT scan. The abdomen constipation for 7 days. She had no fever, no leukocytosis. She usually has chronic diarrhea or constipation off and on. 1. Obesity. 2. Diabetes mellitus. 3. Hypertension. 4. Sigmoid diverticular disease. 5. Colon polyp. 6. Bipolar disorder. 7. Attention deficit hyperactivity disorder. 8. Schizophrenia. RECOMMENDATIONS: Agree with placing the patient on GoLYTELY. If the patient is cleaned out today, hopefully, we can start the patient on clear liquid diet. She will probably come back for colonoscopy as outpatient in near the future. Job ID: [id number]
[2019-05-22] MEDS: traZODone HCl 50 MG TAB PO SCH (00:22)
[2019-05-22 05:55] LABS: Hemoglobin 11.4 g/dL (12.0-16.0); Mean Corpuscular HGB CONC 34.6 g/dL (32.0-36.0); Mean Corpuscular Hemoglobin 32.4 pg (27.0-31.0); Mean Corpuscular Volume 93.6 fL (78.0-98.0); Mean Platelet Volume 8.9 fL (7.4-10.4); Platelet Count 141 thou/uL (130-400); Red Blood Cell (RBC) Count 3.51 mill/uL (4.20-5.40); White Blood Cell (WBC) Count 3.4 thou/uL (4.8-10.8)
[2019-05-22 06:03] LABS: ALT (SGPT) 33 U/L (8-55); AST (SGOT) 24 U/L (5-34); Albumin 3.6 g/dL (3.5-5.0); Alkaline Phosphatase 89 U/L (40-110); Anion Gap 9 mmol/L (10-20); BUN (Urea Nitrogen) 5 mg/dL (9.8-20.1); Bilirubin, Total 0.3 mg/dL (0.2-1.2); Calc. Creatinine Clearance 173 mL/min (70-130); Calcium 8.7 mg/dL (7.8-10.44); Carbon Dioxide 29 mmol/L (22-29); Chloride 107 mmol/L (98-107); Estimated GFR-MDRD Greater than 90; Globulin 2.6 g/dL (2.4-3.5); Glucose 180 mg/dL (70-105); Magnesium 1.8 mg/dL (1.6-2.6); Potassium 4.2 mmol/L (3.5-5.1); Protein, Total 6.2 g/dL (6.0-8.3); Sodium 141 mmol/L (136-145)
[2019-05-22 06:06] LABS: Band 2 % (5-11); Eosinophils 2 % (0-10); Lymphocytes 51 % (21-51); MDiff Complete? YES; Monocytes 8 % (0-10); Neutrophil 37 % (42-75)
[2019-05-22] MEDS: metroNIDAZOLE 500 MG in Premix Bag 1 BAG IVPB SCH ×2 (06:08→14:37)
[2019-05-22] MEDS: Insulin Regular 300 UNITS/3 ML VIAL SC PRN ×3 (06:30→16:33)
[2019-05-22] MEDS ORDERED: Insulin Glargine 25 UNITS in Pre-Filled Syringe 1 EACH SC SCH (09:00)
[2019-05-22] MEDS: Multivit, Therapeutic 1 TAB PO SCH (09:28)
[2019-05-22] MEDS: Docusate 100 MG CAP PO SCH (09:28)
[2019-05-22] MEDS: carBAMazepine 200 MG TAB PO SCH (09:28)
[2019-05-22] MEDS: Polyethylene Glycol 3350 17 GM Packet PO SCH (09:28)
[2019-05-22] MEDS: Aspirin Chewable 81 MG TAB PO SCH (09:28)
[2019-05-22] MEDS: Sodium Chloride 0.9% 1,000 ML IV SCH (09:31)
[2019-05-22 16:31] VITALS: BP 148/88; TEMP 98.3
--- NOTE | 2019-05-22 23:20 | DIS ---
DATE OF ADMISSION: 05/19/2019 DATE OF DISCHARGE: 05/22/2019 DISCHARGE DISPOSITION: Home. FOLLOWUP: 1. Follow up with primary care physician, Dr. Vivian Rivera, in 1 week. 2. Follow up with Gastroenterology, Dr. Palomo, as scheduled. Patient was seen and examined on the day of discharge. Denies any new complaints. Abdominal pain has significantly improved. DISCHARGE MEDICATIONS: Ciprofloxacin and Flagyl for another 3 to 4 days. All other home medications were resumed. BRIEF HOSPITAL COURSE: The patient is a 58-year-old female with diverticulosis, presented to the emergency room with abdominal discomfort. Workup in the emergency room was consistent with acute diverticulitis involving the sigmoid colon. She was monitored as inpatient due to intermittent chest discomfort as well. The symptoms improved with IV antibiotics. Due to significant constipation, she was started on GoLYTELY. The patient has been cleared by Cardiology. Her troponins remained negative. She will benefit from a stress test as outpatient. FINAL DIAGNOSES: 1. Acute uncomplicated sigmoid diverticulitis. 2. Atypical chest discomfort. A stress test as outpatient is recommended. 3. Diabetes mellitus type 2. 4. Hypertension. 5. Obesity with a BMI of 38. 6. Hyperlipidemia. 7. Constipation. 8. Hyponatremia, present on admission. 9. Thrombocytopenia, improving. The patient understands the above plan of care. Job ID: [id number]
== END 2019-05-22 17:25 | disposition home or self-care (01) | DRG 392 ==
LOC: ERS 15:03 → 2SW 21:31 → OBSVTOIN 21:31 → T4-B 05-21 21:05
PROVIDERS: ADMIT Internal Medicine; ATTEND Internal Medicine
DX: K57.32 Diverticulitis of large intestine without perforation or abscess without bleeding (principal); E87.1 Hypo-osmolality and hyponatremia; R07.89 Other chest pain; E11.9 Type 2 diabetes mellitus without complications; I10 Essential (primary) hypertension; E66.9 Obesity, unspecified; E78.5 Hyperlipidemia, unspecified; K59.00 Constipation, unspecified; D69.6 Thrombocytopenia, unspecified; F20.9 Schizophrenia, unspecified; F31.9 Bipolar disorder, unspecified; F90.9 Attention-deficit hyperactivity disorder, unspecified type; Z68.38 Body mass index [BMI] 38.0-38.9, adult; Z90.49 Acquired absence of other specified parts of digestive tract; Z86.010 Personal history of colon polyps; Z90.710 Acquired absence of both cervix and uterus; Z91.040 Latex allergy status; Z88.8 Allergy status to other drugs, medicaments and biological substances; Z91.048 Other nonmedicinal substance allergy status; Z79.899 Other long term (current) drug therapy; Z79.4 Long term (current) use of insulin
CPT/HCPCS: 36415; 36416; 71045; 74177; 80048; 80053; 81003; 81015; 83605; 83690; 83735; 84484; 85025; 93005; 94760; 96361; 96374; 96375; 96376; J0744; J1815; J2270; J2405; J3010; Q0162; Q9967; S0028

== ENCOUNTER 2020-01-14 15:52 | Emergency (ER) | payer MEDICARE ==
[2020-01-14] MEDS ORDERED: Ketorolac Tromethamine 30 MG/ML VIAL ONE (16:30)
== END 2020-01-14 16:56 | disposition home or self-care (01) ==
LOC: ERS 15:52
DX: M54.5 Low back pain (principal); F41.9 Anxiety disorder, unspecified; F31.9 Bipolar disorder, unspecified; F20.9 Schizophrenia, unspecified; F90.9 Attention-deficit hyperactivity disorder, unspecified type; K21.9 Gastro-esophageal reflux disease without esophagitis; I10 Essential (primary) hypertension; E11.9 Type 2 diabetes mellitus without complications; E78.5 Hyperlipidemia, unspecified; E78.00 Pure hypercholesterolemia, unspecified; E78.1 Pure hyperglyceridemia; Z79.4 Long term (current) use of insulin; Z79.899 Other long term (current) drug therapy; Z79.82 Long term (current) use of aspirin
CPT/HCPCS: 96372; 99283; J1885

== ENCOUNTER 2020-06-24 16:03 | Emergency (ER) | payer MEDICARE ==
[2020-06-24] MEDS ORDERED: Aspirin Chewable 81 MG TAB ONE (16:17)
[2020-06-24 16:46] LABS: #Eosinphils 0.1 thou/uL (0.0-0.7); #Lymphocytes 1.5 thou/uL (1.20-3.40); #Monocytes 0.8 thou/uL (0.11-0.59); #Neutrophils 5.5 thou/uL (1.40-6.50); %Basophils 0.3 % (0.0-1.0); %Eosinophils 0.7 % (0.0-10.0); %Lymphocytes 19.3 % (21.0-51.0); %Monocytes 9.9 % (0.0-10.0); %Neutrophils 69.8 % (42.0-75.0); Mean Corpuscular Hemoglobin 33.2 pg (27.0-31.0); Mean Corpuscular Volume 94.8 fL (78.0-98.0); Mean Platelet Volume 8.7 fL (7.4-10.4); Platelet Count 224 thou/uL (130-400); RBC Distribution Width 11.3 % (11.5-14.5); Red Blood Cell (RBC) Count 3.92 mill/uL (4.20-5.40); White Blood Cell (WBC) Count 7.9 thou/uL (4.8-10.8)
[2020-06-24 17:06] LABS: ALT (SGPT) 28 U/L (8-55); AST (SGOT) 20 U/L (5-34); Albumin 4.5 g/dL (3.5-5.0); Alkaline Phosphatase 117 U/L (40-110); Anion Gap 17 mmol/L (10-20); BUN (Urea Nitrogen) 10 mg/dL (9.8-20.1); Bilirubin, Total 0.4 mg/dL (0.2-1.2); Calc. Creatinine Clearance 0 mL/min (70-130); Calcium 9.1 mg/dL (7.8-10.44); Carbon Dioxide 26 mmol/L (22-29); Chloride 94 mmol/L (98-107); Globulin 2.8 g/dL (2.4-3.5); Glucose 246 mg/dL (70-105); Lipase 22 U/L (8-78); Potassium 3.6 mmol/L (3.5-5.1); Protein, Total 7.3 g/dL (6.0-8.3); Sodium 133 mmol/L (136-145)
== END 2020-06-24 17:49 | disposition home or self-care (01) ==
LOC: ERS 16:03
DX: J18.9 Pneumonia, unspecified organism (principal); M94.0 Chondrocostal junction syndrome [Tietze]; K21.9 Gastro-esophageal reflux disease without esophagitis; E78.5 Hyperlipidemia, unspecified; E78.00 Pure hypercholesterolemia, unspecified; E78.1 Pure hyperglyceridemia; I10 Essential (primary) hypertension; Z87.19 Personal history of other diseases of the digestive system; E11.9 Type 2 diabetes mellitus without complications; Z79.4 Long term (current) use of insulin
CPT/HCPCS: 36415; 71045; 80053; 83690; 84484; 85025; 93005

== ENCOUNTER 2020-07-22 12:02 | Outpatient (CLI) | payer MEDICARE | END 2020-07-22 12:03 | disposition home or self-care (01) | LOC: BICRAD 12:02 | PROVIDERS: ATTEND Family Medicine | DX: J18.9 Pneumonia, unspecified organism (principal) | CPT/HCPCS: 71046 ==

== ENCOUNTER 2020-07-27 21:52 | Emergency (ER) | payer MEDICARE ==
[2020-07-27 22:23] LABS: #Eosinphils 0.1 thou/uL (0.0-0.7); #Lymphocytes 2.1 thou/uL (1.20-3.40); #Monocytes 0.5 thou/uL (0.11-0.59); #Neutrophils 2.5 thou/uL (1.40-6.50); %Basophils 0.5 % (0.0-1.0); %Eosinophils 1.2 % (0.0-10.0); %Lymphocytes 40.2 % (21.0-51.0); %Monocytes 9.5 % (0.0-10.0); %Neutrophils 48.6 % (42.0-75.0); Hemoglobin 12.9 g/dL (12.0-16.0); Mean Corpuscular HGB CONC 34.1 g/dL (32.0-36.0); Mean Corpuscular Hemoglobin 32.1 pg (27.0-31.0); Mean Corpuscular Volume 94.2 fL (78.0-98.0); Mean Platelet Volume 8.8 fL (7.4-10.4); Platelet Count 180 thou/uL (130-400); RBC Distribution Width 11.5 % (11.5-14.5); Red Blood Cell (RBC) Count 4.02 mill/uL (4.20-5.40); White Blood Cell (WBC) Count 5.1 thou/uL (4.8-10.8)
[2020-07-27 22:44] LABS: ALT (SGPT) 38 U/L (8-55); AST (SGOT) 26 U/L (5-34); Albumin 4.4 g/dL (3.5-5.0); Alkaline Phosphatase 117 U/L (40-110); Anion Gap 16 mmol/L (10-20); BUN (Urea Nitrogen) 10 mg/dL (9.8-20.1); Bilirubin, Total 0.3 mg/dL (0.2-1.2); Calc. Creatinine Clearance 0 mL/min (70-130); Calcium 9.7 mg/dL (7.8-10.44); Carbon Dioxide 27 mmol/L (22-29); Chloride 99 mmol/L (98-107); Globulin 2.7 g/dL (2.4-3.5); Glucose 206 mg/dL (70-105); Potassium 4.3 mmol/L (3.5-5.1); Protein, Total 7.1 g/dL (6.0-8.3); Sodium 138 mmol/L (136-145)
[2020-07-28 01:28] LABS: Troponin I Less than 0.010 ng/mL (< 0.028)
[2020-07-28 03:37] LABS: SARS-CoV-2 PCR by NAA Not Detected (NotDetected)
== END 2020-07-28 02:09 | disposition home or self-care (01) ==
LOC: ERS 21:52
DX: R07.9 Chest pain, unspecified (principal); R55 Syncope and collapse; K21.9 Gastro-esophageal reflux disease without esophagitis; E11.9 Type 2 diabetes mellitus without complications; E78.2 Mixed hyperlipidemia; I10 Essential (primary) hypertension; E66.9 Obesity, unspecified
CPT/HCPCS: 71045; 80053; 83690; 84484; 85025; 87804 ×2; 93005; U0003; U0005; 36415; 87635

== ENCOUNTER 2021-03-30 09:52 | Outpatient (CLI) | payer MEDICARE | END 2021-03-30 09:53 | disposition home or self-care (01) | LOC: BICMAMMO 09:52 | PROVIDERS: ATTEND Family Medicine | DX: Z12.31 Encounter for screening mammogram for malignant neoplasm of breast (principal); Z80.3 Family history of malignant neoplasm of breast; Z91.89 Other specified personal risk factors, not elsewhere classified | CPT/HCPCS: 77063; 77067 ==

== ENCOUNTER 2021-04-24 13:26 | Emergency (ER) | payer MEDICARE ==
[2021-04-24 14:15] LABS: #Lymphocytes 1.5 thou/uL (1.20-3.40); #Monocytes 0.5 thou/uL (0.11-0.59); #Neutrophils 2.2 thou/uL (1.40-6.50); %Basophils 0.8 % (0.0-1.0); %Eosinophils 0.8 % (0.0-10.0); %Monocytes 11.5 % (0.0-10.0); Hemoglobin 12.7 g/dL (12.0-16.0); Mean Corpuscular HGB CONC 34.3 g/dL (32.0-36.0); Mean Corpuscular Hemoglobin 32.2 pg (27.0-31.0); Mean Corpuscular Volume 93.7 fL (78.0-98.0); Mean Platelet Volume 8.5 fL (7.4-10.4); Platelet Count 136 thou/uL (130-400); RBC Distribution Width 11.2 % (11.5-14.5); Red Blood Cell (RBC) Count 3.94 mill/uL (4.20-5.40); White Blood Cell (WBC) Count 4.3 thou/uL (4.8-10.8)
[2021-04-24 14:39] LABS: ALT (SGPT) 26 U/L (8-55); AST (SGOT) 17 U/L (5-34); Albumin 4.1 g/dL (3.5-5.0); Alkaline Phosphatase 128 U/L (40-110); Anion Gap 14 mmol/L (10-20); BUN (Urea Nitrogen) 10 mg/dL (9.8-20.1); Bilirubin, Total 0.4 mg/dL (0.2-1.2); Calc. Creatinine Clearance 0 mL/min (70-130); Carbon Dioxide 26 mmol/L (22-29); Chloride 99 mmol/L (98-107); Globulin 2.5 g/dL (2.4-3.5); Glucose 326 mg/dL (70-105); Potassium 3.7 mmol/L (3.5-5.1); Protein, Total 6.6 g/dL (6.0-8.3); Sodium 135 mmol/L (136-145)
[2021-04-25 00:04] LABS: SARS-CoV-2 PCR by NAA DETECTED (NotDetected)
== END 2021-04-24 14:47 | disposition home or self-care (01) ==
LOC: ERS 13:26
DX: U07.1 COVID-19 (principal); K21.9 Gastro-esophageal reflux disease without esophagitis; E11.9 Type 2 diabetes mellitus without complications; Z79.4 Long term (current) use of insulin; E78.2 Mixed hyperlipidemia; I10 Essential (primary) hypertension; Z87.891 Personal history of nicotine dependence
CPT/HCPCS: 71045; 80053; 85025; 99284; U0003; U0005; 36415

== ENCOUNTER 2022-02-21 19:09 | Inpatient (IN) | payer MEDICARE, OTHER ==
[2022-02-21 20:15] LABS: #Eosinphils 0.1 thou/uL (0.0-0.7); #Monocytes 0.6 thou/uL (0.11-0.59); #Neutrophils 5.4 thou/uL (1.40-6.50); %Basophils 0.4 % (0.0-1.0); %Eosinophils 0.7 % (0.0-10.0); %Lymphocytes 24.6 % (21.0-51.0); %Monocytes 6.9 % (0.0-10.0); %Neutrophils 67.4 % (42.0-75.0); Hemoglobin 13.6 g/dL (12.0-16.0); Mean Corpuscular HGB CONC 34.8 g/dL (32.0-36.0); Mean Corpuscular Hemoglobin 33.1 pg (27.0-31.0); Mean Corpuscular Volume 95.1 fl (78.0-98.0); Mean Platelet Volume 8.5 fL (7.4-10.4); Platelet Count 217 10x3/uL (130-400)
[2022-02-21 20:29] LABS: ALT (SGPT) 41 U/L (8-55); AST (SGOT) 30 U/L (5-34); Albumin 4.5 g/dL (3.5-5.0); Alkaline Phosphatase 146 U/L (40-110); Anion Gap 14 mmol/L (10-20); BUN (Urea Nitrogen) 8 mg/dL (9.8-20.1); Bilirubin, Total 0.3 mg/dL (0.2-1.2); Calc. Creatinine Clearance 0 mL/min (70-130); Calcium 9.5 mg/dL (7.8-10.44); Carbon Dioxide 28 mmol/L (22-29); Chloride 95 mmol/L (98-107); Estimated GFR 90; Globulin 2.8 g/dL (2.4-3.5); Glucose 184 mg/dL (70-105); Potassium 3.7 mmol/L (3.5-5.1); Protein, Total 7.3 g/dL (6.0-8.3); Sodium 133 mmol/L (136-145)
[2022-02-22 01:44] LABS: Bilirubin Negative (Negative); Blood, Urine Negative (Negative); Clarity Clear (Clear); Glucose, Urine (Dipstick) Greater than 1000 mg/dL (Negative); Ketone, Urine Negative (Negative); Leukocyte Negative Leu/uL (Negative); Nitrite Negative (Negative); Protein, Urine (Dipstick) Negative (Neg-Trace); Specific Gravity, Urine 1.029 (1.002-1.036); Urobilinogen Normal mg/dL (Less than 2); pH, Urine 7.5 (5.0-9.0)
[2022-02-22] MEDS ORDERED: HumaLOG 300 UNITS/3 ML VIAL SC PRN ×2 (03:44)
[2022-02-22] MEDS ORDERED: Dextrose 50% Abboject 50 ML SYRINGE SLOW IVP PRN (03:44)
[2022-02-22] MEDS ORDERED: Acetaminophen 650 MG Suppository PR PRN (03:44)
[2022-02-22] MEDS ORDERED: Dextrose 5% in Water 1,000 ML IV PRN (03:44)
[2022-02-22] MEDS ORDERED: Acetaminophen 325 MG TAB PO PRN (03:44)
[2022-02-22] MEDS ORDERED: Ondansetron ODT 4 MG TAB PO PRN (03:44)
[2022-02-22] MEDS ORDERED: Ondansetron PF 4 MG/2 ML Vial IVP PRN (03:44)
[2022-02-22 04:50] VITALS: BMI 30.9
[2022-02-22] MEDS ORDERED: busPIRone HCl 5 MG TAB PO SCH (05:00)
[2022-02-22] MEDS: Sodium Chloride 0.9% 1,000 ML IV SCH ×2 (05:22→15:28)
[2022-02-22 06:11] LABS: SARS-CoV-2 NAA Rapid Test Not Detected (NotDetected)
[2022-02-22 08:04] LABS: Glucose 130 mg/dL (70-105)
[2022-02-22] MEDS ORDERED: ALPRAZolam 0.25 MG TAB PO PRN (08:40)
[2022-02-22] MEDS ORDERED: FLU VACC QS2022-23(6MOS UP)/PF 60 MCG/0.5 ML SYRINGE IM ONE (09:00)
[2022-02-22] MEDS: Venlafaxine 75 MG TAB PO SCH (09:51)
[2022-02-22] MEDS: carBAMazepine 200 MG TAB PO SCH (09:51)
[2022-02-22] MEDS: Gabapentin 300 MG CAP PO SCH ×3 (10:18→20:55)
[2022-02-22] MEDS ORDERED: Polyethylene Glycol 3350 17 GM Packet PO SCH (14:45)
[2022-02-22] MEDS: busPIRone HCl 5 MG TAB PO SCH ×2 (15:29→20:55)
[2022-02-22] MEDS: metFORMIN 500 MG TAB PO SCH (16:59)
[2022-02-22] MEDS ORDERED: traZODone HCl 150 MG TAB PO SCH (21:00)
[2022-02-22] MEDS ORDERED: carBAMazepine 200 MG TAB PO SCH (21:00)
[2022-02-22] MEDS ORDERED: Empagliflozin 25 MG TAB PO SCH (21:00)
[2022-02-23] MEDS: Sodium Chloride 0.9% 1,000 ML IV SCH (00:45)
[2022-02-23 06:48] LABS: #Eosinphils 0.1 thou/uL (0.0-0.7); #Lymphocytes 1.4 thou/uL (1.20-3.40); #Monocytes 0.4 thou/uL (0.11-0.59); #Neutrophils 1.1 thou/uL (1.40-6.50); %Basophils 1.7 % (0.0-1.0); %Eosinophils 2.1 % (0.0-10.0); %Monocytes 12.5 % (0.0-10.0); %Neutrophils 35.7 % (42.0-75.0); Hemoglobin 11.5 g/dL (12.0-16.0); Mean Corpuscular Hemoglobin 32.9 pg (27.0-31.0); Mean Corpuscular Volume 96.8 fl (78.0-98.0); Mean Platelet Volume 8.2 fL (7.4-10.4); Platelet Count 165 10x3/uL (130-400); RBC Distribution Width 10.9 % (11.5-14.5); Red Blood Cell (RBC) Count 3.48 mill/uL (4.20-5.40)
[2022-02-23 07:21] LABS: Anion Gap 7 mmol/L (10-20); BUN (Urea Nitrogen) 4 mg/dL (9.8-20.1); Calc. Creatinine Clearance 222 mL/min (70-130); Calcium 5.7 mg/dL (7.8-10.44); Carbon Dioxide 18 mmol/L (22-29); Chloride 121 mmol/L (98-107); Estimated GFR 113; Glucose 74 mg/dL (70-105); Potassium 2.8 mmol/L (3.5-5.1); Sodium 143 mmol/L (136-145)
[2022-02-23] MEDS ORDERED: CALCIUM GLUC 1 GM/NS 50 ML 1 GM in Premix Bag 1 BAG IVPB SCH (07:45)
[2022-02-23] MEDS ORDERED: Electrolyte Replacement Protocol 1 EACH FS SCH (07:45)
[2022-02-23] MEDS ORDERED: Potassium Chloride 20 MEQ TAB PO SCH (07:45)
[2022-02-23 08:19] VITALS: BP 147/86; TEMP 98.1
[2022-02-23] MEDS ORDERED: Electrolyte Replacement Protocol FS PRN (08:45)
[2022-02-23] MEDS ORDERED: Multivitamin W/ Minerals 1 TAB PO SCH (09:00)
[2022-02-23] MEDS ORDERED: Non-Formulary Item 1 EACH (Cider Vinegar [Apple Cider Vinegar] 500 MG Tablet) PO SCH (09:00)
[2022-02-23] MEDS ORDERED: Fish Oil 1,000 MG CAP PO SCH (09:00)
[2022-02-23] MEDS ORDERED: Calcium Carbonate 600 MG + Vit D TAB PO SCH (09:00)
[2022-02-23] MEDS ORDERED: Calcium Polycarbophil 625 MG TAB PO SCH (09:00)
[2022-02-23] MEDS ORDERED: Polyethylene Glycol 3350 17 GM Packet PO SCH ×2 (09:00)
[2022-02-23] MEDS: Potassium Bicarbonate/Cit Ac 25 MEQ TAB PO SCH ×2 (09:17→10:53)
[2022-02-23] MEDS: Calcium Carbonate 500 MG ChewTAB PO SCH ×2 (09:18→15:36)
[2022-02-23] MEDS: metFORMIN 500 MG TAB PO SCH (09:19)
[2022-02-23] MEDS: carBAMazepine 200 MG TAB PO SCH (09:19)
[2022-02-23] MEDS: Venlafaxine 75 MG TAB PO SCH (09:19)
[2022-02-23] MEDS: Gabapentin 300 MG CAP PO SCH ×2 (09:19→15:37)
[2022-02-23] MEDS: busPIRone HCl 5 MG TAB PO SCH ×2 (09:20→15:37)
[2022-02-23] MEDS ORDERED: BLACK COHOSH 40 MG PO SCH (11:45)
[2022-02-23 12:51] LABS: ALT (SGPT) 28 U/L (8-55); AST (SGOT) 17 U/L (5-34); Albumin 4.2 g/dL (3.5-5.0); Alkaline Phosphatase 84 U/L (40-110); Anion Gap 13 mmol/L (10-20); BUN (Urea Nitrogen) 7 mg/dL (9.8-20.1); Bilirubin, Total 0.3 mg/dL (0.2-1.2); Calc. Creatinine Clearance 138 mL/min (70-130); Calcium 9.6 mg/dL (7.8-10.44); Carbon Dioxide 27 mmol/L (22-29); Chloride 100 mmol/L (98-107); Estimated GFR 101; Globulin 2.7 g/dL (2.4-3.5); Glucose 95 mg/dL (70-105); Magnesium 2.2 mg/dL (1.6-2.6); Potassium 4.5 mmol/L (3.5-5.1); Protein, Total 6.9 g/dL (6.0-8.3); Sodium 135 mmol/L (136-145)
[2022-02-23] MEDS ORDERED: Potassium Chloride 10 MEQ TAB PO SCH (15:00)
[2022-02-24] MEDS ORDERED: BLACK COHOSH 40 MG PO SCH (09:00)
== END 2022-02-23 17:12 | disposition home or self-care (01) | DRG 394 ==
LOC: ERS 19:09 → T4-B 02-22 00:19
PROVIDERS: ADMIT Family Medicine; ATTEND Family Medicine
DX: K64.9 Unspecified hemorrhoids (principal); E87.1 Hypo-osmolality and hyponatremia; Z20.822 Contact with and (suspected) exposure to COVID-19; F31.9 Bipolar disorder, unspecified; F41.9 Anxiety disorder, unspecified; E78.5 Hyperlipidemia, unspecified; E11.9 Type 2 diabetes mellitus without complications; K21.9 Gastro-esophageal reflux disease without esophagitis; F20.9 Schizophrenia, unspecified; E83.51 Hypocalcemia; Z88.8 Allergy status to other drugs, medicaments and biological substances; Z91.040 Latex allergy status; Z28.21 Immunization not carried out because of patient refusal; Z91.09 Other allergy status, other than to drugs and biological substances; Z79.899 Other long term (current) drug therapy; Z79.84 Long term (current) use of oral hypoglycemic drugs; Z79.82 Long term (current) use of aspirin; Z90.49 Acquired absence of other specified parts of digestive tract; Z90.710 Acquired absence of both cervix and uterus; Z90.721 Acquired absence of ovaries, unilateral; Z87.891 Personal history of nicotine dependence
CPT/HCPCS: 36415; 36416; 74177; 80048; 80053; 81003; 82274; 82947; 83735; 83970; 84484; 85025; 86850; 86900; 86901; 93005; J0610; J7050; Q9967; U0002

== ENCOUNTER 2022-04-14 12:25 | Outpatient (CLI) | payer OTHER | END 2022-04-14 12:26 | disposition home or self-care (01) | LOC: BICMAMMO 12:25 | PROVIDERS: ATTEND Family Medicine | DX: Z12.31 Encounter for screening mammogram for malignant neoplasm of breast (principal); Z80.3 Family history of malignant neoplasm of breast; Z91.89 Other specified personal risk factors, not elsewhere classified | CPT/HCPCS: 77063; 77067 ==

== ENCOUNTER 2022-07-16 15:37 | Emergency (ER) | payer MEDICARE | END 2022-07-16 17:45 | disposition home or self-care (01) | LOC: ERS 15:37 | DX: G58.9 Mononeuropathy, unspecified (principal); M25.511 Pain in right shoulder; K21.9 Gastro-esophageal reflux disease without esophagitis; E11.9 Type 2 diabetes mellitus without complications; E78.2 Mixed hyperlipidemia; I10 Essential (primary) hypertension; Z87.891 Personal history of nicotine dependence | CPT/HCPCS: 99283 ==